=== PATIENT | female | born 1980 | race Caucasian/White ===

== ENCOUNTER 2017-01-06 13:28 | Emergency (ER) | payer MEDICAID, OTHER ==
[~2017-01-06] VITALS: Ht 170.2 cm; Wt 140.0 kg
[~2017-01-06 13:28] MED LIST: IBUP800T23 PO; OMEP20TA PO
[2017-01-06 13:39] VITALS: PULSE 106; RESP 20; TEMP 97.9; O2SAT 97
[2017-01-06 14:48] LABS: BLOOD, URINE SMALL (NEG); GLUCOSE,URINE NEG (NEG); KETONE, URINE NEG (NEG); METHOD OF COLLECTION CLEAN CATCH; NITRITE,URINE NEG (NEG); PH, URINE 5.5 (5.0-8.5)
[2017-01-06 14:49] LABS: URINE COLOR YELLOW (YELLW/STRAW)
[2017-01-06 14:52] LABS: COMMENT (UR) CULT NOT INDICATED; CULTURE IF INDICATED CULT NOT INDICATED; RBC, URINE 0-3 /hpf (0-3); SQUAMOUS EPITHELIAL CELL URINE 0-5 /hpf (0-5)
--- NOTE | 2017-01-06 14:57 | PD ---
HPI Chief Complaint: GI Complaint Time Seen by Provider: 14:42 Travel History International Travel<30 days: No Contact w/Intl Traveler<30days: No Traveled to known affect area: No History of Present Illness HPI 36 year-old woman presents to the emergency department with 4 days of nausea vomiting. She also has some right sided flank pain. She had both children at home that were sick successively with nausea vomiting fevers chills and diarrhea. She's had chills but no real fevers. No diarrhea. Symptoms started about 4 days ago renal better and that she was throwing up again today. Pain is been along the right flank. Also been very very fatigued. She otherwise had been feeling generally well and healthy. No other complaints. History Past Medical History Narrative Medical Gastritis/esophagitis LMP: 12/26/2016 : 4 Para: 2 Social History Alcohol Use: Yes (Rarely) Tobacco Use: Yes (1 PPD) Allergies-Medications (Allergen,Severity, Reaction): Coded Allergies: No Known Allergies (Verified , 01/06/17) Reported Meds & Prescriptions Reported Meds & Active Scripts Active Reported Omeprazole 20 Mg Tab 20 Mg PO DAILY Review of Systems Except as stated in HPI: all other systems reviewed are Neg Physical Exam Narrative GENERAL: Well-appearing 36 year-old woman, no acute distress. SKIN: Warm and dry. HEAD: Atraumatic. Normocephalic. EYES: Pupils equal and round. No scleral icterus. No injection or drainage. ENT: No nasal bleeding or discharge. Mucous membranes pink and moist. NECK: Trachea midline. No JVD. CARDIOVASCULAR: Regular rate and rhythm. No murmur appreciated. RESPIRATORY: No accessory muscle use. Clear to auscultation. Breath sounds equal bilaterally. GASTROINTESTINAL: Abdomen is obese, soft, there is no tenderness. There is no right upper quadrant tenderness. Negative Altamirano's. MUSCULOSKELETAL: No obvious deformities. No edema. NEUROLOGICAL: Awake and alert. No obvious cranial nerve deficits. Motor grossly within normal limits. Normal speech. PSYCHIATRIC: Appropriate mood and affect; insight and judgment normal. Data Data Last Documented VS Vital Signs Date Time Temp Pulse Resp B/P Pulse Ox O2 Delivery O2 Flow Rate FiO2 01/06/17 13:39 97.9 106 20 97 Orders Urinalysis - C+S If Indicated (01/06/17 14:39) Ed Urine Pregnancytest Poc (01/06/17 14:39) Complete Blood Count With Diff (01/06/17 14:51) Comprehensive Metabolic Panel (01/06/17 14:51) Lipase (01/06/17 14:51) Iv Access Insert/Monitor (01/06/17 14:51) Sodium Chlor 0.9% 1000 Ml Inj (Ns 1000 M (01/06/17 15:00) Ondansetron Inj (Zofran Inj) (01/06/17 15:00) Labs Laboratory Tests Test 01/06/17 01/06/17 14:30 15:10 Urine Collection Type CLEAN CATCH Urine Color YELLOW Urine Turbidity CLEAR Urine pH 5.5 Urine Specific [place] 1.015 Urine Protein NEG mg/dL Urine Glucose (UA) NEG mg/dL Urine Ketones NEG mg/dL Urine Occult Blood SMALL Urine Nitrite NEG Urine Bilirubin NEG Urine Leukocyte Esterase NEG Urine RBC 0-3 /hpf Urine WBC 3-5 /hpf Urine Squamous Epithelial 0-5 /hpf Cells Microscopic Urinalysis Comment CULT NOT INDICATED Sodium Level 139 MEQ/L Potassium Level 4.1 MEQ/L Chloride Level 105 MEQ/L Carbon Dioxide Level 27.5 MEQ/L Anion Gap 7 MEQ/L Blood Urea Nitrogen 10 MG/DL Creatinine 0.82 MG/DL Estimat Glomerular Filtration 79 ML/MIN Rate Random Glucose 87 MG/DL Calcium Level 8.3 MG/DL Total Bilirubin 0.7 MG/DL Aspartate Amino Transf 17 U/L (AST/SGOT) Alanine Aminotransferase 28 U/L (ALT/SGPT) Alkaline Phosphatase 93 U/L Total Protein 7.6 GM/DL Albumin 3.5 GM/DL Lipase 73 U/L [facility] Medical Decision Making Medical Screen Exam Complete: Yes Emergency Medical Condition: Yes Differential Diagnosis Gastroenteritis, gastritis, cholecystitis, pancreatitis, dehydration, other Narrative Course Medical decision-making 36-year-old with gastritis-type symptoms. 2 children both a gastroenteritis. She is not really had any diarrhea. She is a history of gastritis. She's no abdominal tenderness at all. This right sided pain seems to be musculoskeletal from vomiting. She has no right upper quadrant tenderness in the abdomen. She has had gallstones in the past. We'll check labs, IV fluid, antiemetics, likely discharge. Diagnosis Primary Impression: Nausea & vomiting Qualified Code: R11.2 - Nausea and vomiting, intractability of vomiting not specified, unspecified vomiting type Patient Instructions: General Instructions Additional Instructions: Use Zofran if needed for nausea or vomiting. Drink plenty of fluids to stay well-hydrated. Follow-up with her primary doctor in the next 2-4 days. Return to the emergency department for any worsening abdominal pain, vomiting, or any other new or worsening symptoms. Med/Other Pt SpecificInfo: Prescription(s) given Scripts Ondansetron Odt (Zofran Odt)4 Mg Tab4 Mg SL Q8HR PRN (Nausea/Vomiting) #15 TAB May substitute non-ODT form. Prov:Lam Bustamante MD 01/06/17 Disposition: 01 DISCHARGE HOME Condition: Stable Lam Bustamante MD Jan 06, 2017 14:57
[2017-01-06] MEDS ORDERED: SODIUM CHLOR 0.9% 1000 ML INJ 1,000 ML IV SCH (15:00)
[2017-01-06] MEDS ORDERED: ONDANSETRON HCL 4 MG/2 ML VIAL IV ONE (15:00)
[2017-01-06 15:15] VITALS: BP 147/87; PULSE 92; RESP 16; O2SAT 98
[2017-01-06 15:27] LABS: CHLORIDE 105 MEQ/L (98-107); POTASSIUM 4.1 MEQ/L (3.5-5.1); SODIUM (NA) 139 MEQ/L (136-145)
[2017-01-06 15:31] LABS: ANION GAP 7 MEQ/L (5-15); BICARBONATE 27.5 MEQ/L (21.0-32.0); BLOOD UREA NITROGEN 10 MG/DL (7-18)
[2017-01-06 15:33] LABS: ALT (GPT) 28 U/L (10-53); AST (GOT) 17 U/L (15-37)
[2017-01-06 15:34] LABS: GLOMERULAR FILTRATION RATE 79 ML/MIN (>89)
[2017-01-06 15:35] LABS: TOTAL BILIRUBIN ADULT 0.7 MG/DL (0.2-1.0)
[2017-01-06 15:36] LABS: ALKALINE PHOSPHATASE 93 U/L (45-117)
[2017-01-06] MEDS ORDERED: ZOFR4TAB3 SL (15:48)
[2017-01-06 15:51] LABS: AUTOMATED NEUTROPHIL # 5.6 TH/MM3 (1.8-7.7); BASOPHIL % 0.2 % (0.0-2.0); EOSINOPHIL # 0.3 TH/MM3 (0-0.4); EOSINOPHIL % 3.5 % (0.0-4.0); HEMATOCRIT 47.5 % (35.0-46.0); LYMPH % 23.9 % (9.0-44.0); MEAN CORPUSCULAR HEMOGLOBIN 28.6 PG (27.0-34.0); MEAN CORPUSCULAR HGB CONC 32.9 % (32.0-36.0); MONO % 7.4 % (0.0-8.0); PLATELET COUNT 277 TH/MM3 (150-450); RED BLOOD COUNT 5.46 MIL/MM3 (4.00-5.30); RED CELL DISTRIBUTION WIDTH 13.4 % (11.6-17.2); WHITE BLOOD COUNT 8.5 TH/MM3 (4.0-11.0)
[2017-01-06 15:52] LABS: HEMO FLAGS DIFF FINAL
[2017-01-06 16:15] VITALS: BP 138/78; PULSE 82; RESP 16; O2SAT 97
== END 2017-01-06 16:22 | disposition home or self-care (01) ==
LOC: PHED 13:28
DX: R11.2 Nausea with vomiting, unspecified (principal)
CPT/HCPCS: 80053; 81001; 83690; 84703; 85025; 96361; 96374; 99284; J2405; J7030

== ENCOUNTER 2017-04-16 04:13 | Emergency (ER) | payer MEDICAID ==
[~2017-04-16] VITALS: Ht 172.7 cm; Wt 142.2 kg
[~2017-04-16 04:13] MED LIST changes: -IBUP800T23 PO; +ZOFR4TAB3 SL
[2017-04-16 04:18] VITALS: BP 158/110; PULSE 108; RESP 16; TEMP 97.5; O2SAT 98
[2017-04-16] MEDS ORDERED: IBUP800T23 PO (04:29)
[2017-04-16] MEDS ORDERED: SODIUM CHLOR 0.9% 1000 ML INJ 1,000 ML IV SCH (04:42)
--- NOTE | 2017-04-16 04:42 | PD ---
HPI Chief Complaint: Abdominal Pain Time Seen by Provider: 04:30 Travel History International Travel<30 days: No Contact w/Intl Traveler<30days: No Traveled to known affect area: No History of Present Illness HPI The patient is a 36-year-old female that complains of right upper quadrant pain for approximately 24 hours. She states she may have had in the last few months some fatty food intolerance. The patient is known to have gallstones, this was shown on a CAT scan in August of last year. She has never had a gallbladder ultrasound. She denies any fever. She has had nausea and vomiting tonight. PFSH Past Medical History Hx Anticoagulant Therapy: No Cancer: No Diabetes: No Diminished Hearing: No GERD: Yes (GASTRITIS/ESOPHAGITIS) Genitourinary: Yes (PT HAS PROCEDURE TO ENLARGE BLADDER) Headaches: Yes Kidney Stones: Yes Musculoskeletal: Yes (OLD LEFT KNEE INJURY) Psychiatric: No Immunizations Current: Yes Migraines: Yes Influenza Vaccination: No ?: Not LMP: 04/02/17 : 4 Para: 2 Miscarriage: 1 : 1 Past Surgical History Genitourinary Surgery: Yes (BLADDER ENLARGEMENT) Social History Alcohol Use: Yes (Rarely) Tobacco Use: Yes (1 PPD) Substance Use: No Allergies-Medications (Allergen,Severity, Reaction): Coded Allergies: No Known Allergies (Verified , 04/16/17) Reported Meds & Prescriptions Reported Meds & Active Scripts Active Zofran Odt (Ondansetron Odt) 4 Mg Tab 4 Mg SL Q8HR PRN May substitute non-ODT form. Reported Ibuprofen 800 Mg Tab 800 Mg PO Q8H PRN Omeprazole 20 Mg Tab 20 Mg PO DAILY Review of Systems Except as stated in HPI: all other systems reviewed are Neg Physical Exam Narrative GENERAL: The patient is obese, alert, oriented 3 in moderate apparent distress with her right upper quadrant pain. The vital signs show temperature 97.5 with pulse rate of 10 weight and blood pressure 158/110 but are otherwise normal. SKIN: Focused skin assessment warm/dry. HEAD: Atraumatic. Normocephalic. EYES: Pupils equal and round. No scleral icterus. No injection or drainage. ENT: No nasal bleeding or discharge. Mucous membranes pink and moist. NECK: Trachea midline. No JVD. CARDIOVASCULAR: Regular rate and rhythm. No murmur appreciated. RESPIRATORY: No accessory muscle use. Clear to auscultation. Breath sounds equal bilaterally. GASTROINTESTINAL: Abdomen soft, non-tender, nondistended. Hepatic and splenic margins not palpable. There is tenderness in the right upper quadrant to direct palpation. Altamirano's sign is negative. MUSCULOSKELETAL: No obvious deformities. No clubbing. No cyanosis. No edema. NEUROLOGICAL: Awake and alert. No obvious cranial nerve deficits. Motor grossly within normal limits. Normal speech. PSYCHIATRIC: Appropriate mood and affect; insight and judgment normal. Data Data Last Documented VS Vital Signs Date Time Temp Pulse Resp B/P Pulse Ox O2 Delivery O2 Flow Rate FiO2 04/16/17 06:04 81 16 114/73 97 Room Air 04/16/17 04:18 97.5 Orders Beta Hcg (Quant/Titer) (04/16/17 04:42) Complete Blood Count With Diff (04/16/17 04:42) Comprehensive Metabolic Panel (04/16/17 04:42) Lipase (04/16/17 04:42) Urinalysis - C+S If Indicated (04/16/17 04:42) Us Abdomen Gallbladder (04/16/17 ) Iv Access Insert/Monitor (04/16/17 04:42) Ecg Monitoring (04/16/17 04:42) Oximetry (04/16/17 04:42) Ondansetron Inj (Zofran Inj) (04/16/17 04:45) Sodium Chlor 0.9% 1000 Ml Inj (Ns 1000 M (04/16/17 04:42) Sodium Chloride 0.9% Flush (Ns Flush) (04/16/17 04:45) Hydromorphone Pf Inj (Dilaudid Pf Inj) (04/16/17 04:45) Labs Laboratory Tests Test 04/16/17 04/16/17 04:40 05:15 White Blood Count 8.6 TH/MM3 Red Blood Count 4.92 MIL/MM3 Hemoglobin 14.2 GM/DL Hematocrit 42.3 % Mean Corpuscular Volume 86.0 FL Mean Corpuscular Hemoglobin 28.8 PG Mean Corpuscular Hemoglobin 33.5 % Concent Red Cell Distribution Width 12.9 % Platelet Count 246 TH/MM3 Mean Platelet Volume 9.6 FL Neutrophils (%) (Auto) 66.6 % Lymphocytes (%) (Auto) 21.5 % Monocytes (%) (Auto) 6.4 % Eosinophils (%) (Auto) 2.4 % Basophils (%) (Auto) 3.1 % Neutrophils # (Auto) 5.6 TH/MM3 Lymphocytes # (Auto) 1.9 TH/MM3 Monocytes # (Auto) 0.6 TH/MM3 Eosinophils # (Auto) 0.2 TH/MM3 Basophils # (Auto) 0.3 TH/MM3 CBC Comment DIFF FINAL Differential Comment Sodium Level 141 MEQ/L Potassium Level 3.6 MEQ/L Chloride Level 106 MEQ/L Carbon Dioxide Level 26.8 MEQ/L Anion Gap 8 MEQ/L Blood Urea Nitrogen 13 MG/DL Creatinine 0.83 MG/DL Estimat Glomerular Filtration 78 ML/MIN Rate Random Glucose 116 MG/DL Calcium Level 8.2 MG/DL Total Bilirubin 0.5 MG/DL Aspartate Amino Transf 218 U/L (AST/SGOT) Alanine Aminotransferase 121 U/L (ALT/SGPT) Alkaline Phosphatase 112 U/L Total Protein 6.7 GM/DL Albumin 3.2 GM/DL Lipase 105 U/L Human Chorionic Gonadotropin, LESS THAN 1 Quant MIU/ML Urine Color KRYSTYNA Urine Turbidity SLIGHT Urine pH 7.0 Urine Specific [place] 1.030 Urine Protein TRACE mg/dL Urine Glucose (UA) NEG mg/dL Urine Ketones TRACE mg/dL Urine Occult Blood TRACE Urine Nitrite NEG Urine Bilirubin NEG Urine Leukocyte Esterase SMALL Urine RBC 0-3 /hpf Urine WBC 3-5 /hpf Urine Squamous Epithelial > 8 /hpf Cells Urine Amorphous Sediment FEW Urine Bacteria OCC /hpf Microscopic Urinalysis Comment CULT NOT INDICATED MDM Medical Decision Making Medical Screen Exam Complete: Yes Emergency Medical Condition: Yes Medical Record Reviewed: Yes Interpretation(s) The CBC is normal. The complete metabolic profile shows a GFR of 78, calcium 8.2, AST of 218, ALT of 121 and albumen of 3.2 but is otherwise unremarkable. The lipase is normal. The beta-hCG is less than 1. The urine shows krystyna color , trace ketones, trace occult blood, small leukocyte Estrace with 3-5 white cells but is otherwise normal and culture is not indicated. Differential Diagnosis Cholelithiasis with colic, cholecystitis, pyelonephritis, ulcer pain, colitis Narrative Course It is now 0652 and the patient is transferred to Dr. Hogan. Zaid Lee MD Apr 16, 2017 04:42 Zaid Lee MD Apr 16, 2017 04:42
[2017-04-16] MEDS ORDERED: ONDANSETRON HCL 4 MG/2 ML VIAL IVP ONE (04:45)
[2017-04-16] MEDS ORDERED: SODIUM CHLORIDE 0.9% FLUSH 10 ML FLUSH IV FLUSH PRN (04:45)
[2017-04-16] MEDS ORDERED: HYDROmorphone HCL PF 1 MG/ML VIAL IVS ONE (04:45)
[2017-04-16 04:50] LABS: AUTOMATED NEUTROPHIL # 5.6 TH/MM3 (1.8-7.7); BASOPHIL # 0.3 TH/MM3 (0-0.2); BASOPHIL % 3.1 % (0.0-2.0); EOSINOPHIL # 0.2 TH/MM3 (0-0.4); EOSINOPHIL % 2.4 % (0.0-4.0); HEMATOCRIT 42.3 % (35.0-46.0); HEMO FLAGS DIFF FINAL; LYMPH % 21.5 % (9.0-44.0); LYMPHOCYTE # 1.9 TH/MM3 (1.0-4.8); MEAN CORPUSCULAR HEMOGLOBIN 28.8 PG (27.0-34.0); MEAN CORPUSCULAR HGB CONC 33.5 % (32.0-36.0); MONO % 6.4 % (0.0-8.0); NEUT % 66.6 % (16.0-70.0); PLATELET COUNT 246 TH/MM3 (150-450); RED BLOOD COUNT 4.92 MIL/MM3 (4.00-5.30); RED CELL DISTRIBUTION WIDTH 12.9 % (11.6-17.2); WHITE BLOOD COUNT 8.6 TH/MM3 (4.0-11.0)
[2017-04-16 04:55] VITALS: PULSE 94; RESP 18; O2SAT 98
[2017-04-16 04:58] LABS: CHLORIDE 106 MEQ/L (98-107); POTASSIUM 3.6 MEQ/L (3.5-5.1); SODIUM (NA) 141 MEQ/L (136-145)
[2017-04-16 05:02] LABS: ANION GAP 8 MEQ/L (5-15); BICARBONATE 26.8 MEQ/L (21.0-32.0); BLOOD UREA NITROGEN 13 MG/DL (7-18)
[2017-04-16 05:05] LABS: ALT (GPT) 121 U/L (10-53); AST (GOT) 218 U/L (15-37); GLOMERULAR FILTRATION RATE 78 ML/MIN (>89)
[2017-04-16 05:06] LABS: TOTAL BILIRUBIN ADULT 0.5 MG/DL (0.2-1.0)
[2017-04-16 05:08] LABS: ALKALINE PHOSPHATASE 112 U/L (45-117)
[2017-04-16 05:10] LABS: BETA HCG QUANT LESS THAN 1 MIU/ML (0-5)
[2017-04-16 05:23] LABS: BLOOD, URINE TRACE (NEG); GLUCOSE,URINE NEG (NEG); KETONE, URINE TRACE mg/dL (NEG); NITRITE,URINE NEG (NEG)
[2017-04-16 05:32] LABS: URINE COLOR AMBER (YELLW/STRAW)
[2017-04-16 05:33] LABS: BACTERIA, URINE OCC /hpf; COMMENT (UR) CULT NOT INDICATED; CULTURE IF INDICATED CULT NOT INDICATED; RBC, URINE 0-3 /hpf (0-3); SQUAMOUS EPITHELIAL CELL URINE > 8 /hpf (0-5)
[2017-04-16 06:04] VITALS: BP 114/73; PULSE 81; RESP 16; O2SAT 97
--- NOTE | 2017-04-16 06:56 | RADRPT ---
EXAM DATE/TIME: 04/16/2017 06:16 [facility] COMPARISON: No previous studies available for comparison. INDICATIONS : RUQ pain. MEDICAL HISTORY : Gastroesophageal reflux disease. Kidney stones. Headaches. Migraines. SURGICAL HISTORY : Bladder enlargement. ENCOUNTER: Initial ACUITY: 2 months PAIN SCORE: 8/10 LOCATION: Right upper quadrant MEASUREMENTS: 15.5 cm length COMMON DUCT: 3 mm RIGHT KIDNEY: 12.1 x 6.9 x 6.7 cm FINDINGS: LIVER: Diffuse echogenic without focal lesion or ductal dilatation. COMMON DUCT: No intraluminal mass or stone visualized. GALLBLADDER: Contains a non-mobile stone in the gallbladder neck, demonstrates no wall thickening or pericholecyst ic fluid. PANCREAS: The visualized portions are within normal limits. RIGHT KIDNEY: No evidence of hydronephrosis, stone, or mass. CONCLUSION: 1. Stone in the gallbladder neck without wall thickening or pericholecystic fluid. 2. Echogenic liver likely hepatic steatosis Kun Catherine MD on April 16, 2017 at 6:53 Board Certified Radiologist. This report was verified electronically.
[2017-04-16 07:05] VITALS: RESP 16; O2SAT 99
[2017-04-16 07:09] VITALS: BP 122/77; PULSE 79; RESP 16; O2SAT 98
[2017-04-16] MEDS ORDERED: CODE30TA2 PO (07:40)
[2017-04-16] MEDS ORDERED: ZOFR4TAB3 SL (07:40)
--- NOTE | 2017-04-16 07:44 | PD ---
Physical Exam Date Seen by Provider: Apr 16, 2017 Narrative GENERAL: SKIN: Warm and dry. HEAD: Atraumatic. Normocephalic. EYES: Pupils equal and round. No scleral icterus. No injection or drainage. ENT: No nasal bleeding or discharge. Mucous membranes pink and moist. NECK: Trachea midline. No JVD. CARDIOVASCULAR: Regular rate and rhythm. RESPIRATORY: No accessory muscle use. Clear to auscultation. Breath sounds equal bilaterally. GASTROINTESTINAL: Abdomen soft, non-tender, nondistended. Hepatic and splenic margins not palpable. MUSCULOSKELETAL: Extremities without clubbing, cyanosis, or edema. No obvious deformities. NEUROLOGICAL: Awake and alert. No obvious cranial nerve deficits. Motor grossly within normal limits. Five out of 5 muscle strength in the arms and legs. Normal speech. PSYCHIATRIC: Appropriate mood and affect; insight and judgment normal. Data Data Last Documented VS Vital Signs Date Time Temp Pulse Resp B/P Pulse Ox O2 Delivery O2 Flow Rate FiO2 04/16/17 07:09 79 16 122/77 98 Room Air 04/16/17 04:18 97.5 Orders Beta Hcg (Quant/Titer) (04/16/17 04:42) Complete Blood Count With Diff (04/16/17 04:42) Comprehensive Metabolic Panel (04/16/17 04:42) Lipase (04/16/17 04:42) Urinalysis - C+S If Indicated (04/16/17 04:42) Us Abdomen Gallbladder (04/16/17 ) Iv Access Insert/Monitor (04/16/17 04:42) Ecg Monitoring (04/16/17 04:42) Oximetry (04/16/17 04:42) Ondansetron Inj (Zofran Inj) (04/16/17 04:45) Sodium Chlor 0.9% 1000 Ml Inj (Ns 1000 M (04/16/17 04:42) Sodium Chloride 0.9% Flush (Ns Flush) (04/16/17 04:45) Hydromorphone Pf Inj (Dilaudid Pf Inj) (04/16/17 04:45) Labs Laboratory Tests Test 04/16/17 04/16/17 04:40 05:15 White Blood Count 8.6 TH/MM3 Red Blood Count 4.92 MIL/MM3 Hemoglobin 14.2 GM/DL Hematocrit 42.3 % Mean Corpuscular Volume 86.0 FL Mean Corpuscular Hemoglobin 28.8 PG Mean Corpuscular Hemoglobin 33.5 % Concent Red Cell Distribution Width 12.9 % Platelet Count 246 TH/MM3 Mean Platelet Volume 9.6 FL Neutrophils (%) (Auto) 66.6 % Lymphocytes (%) (Auto) 21.5 % Monocytes (%) (Auto) 6.4 % Eosinophils (%) (Auto) 2.4 % Basophils (%) (Auto) 3.1 % Neutrophils # (Auto) 5.6 TH/MM3 Lymphocytes # (Auto) 1.9 TH/MM3 Monocytes # (Auto) 0.6 TH/MM3 Eosinophils # (Auto) 0.2 TH/MM3 Basophils # (Auto) 0.3 TH/MM3 CBC Comment DIFF FINAL Differential Comment Sodium Level 141 MEQ/L Potassium Level 3.6 MEQ/L Chloride Level 106 MEQ/L Carbon Dioxide Level 26.8 MEQ/L Anion Gap 8 MEQ/L Blood Urea Nitrogen 13 MG/DL Creatinine 0.83 MG/DL Estimat Glomerular Filtration 78 ML/MIN Rate Random Glucose 116 MG/DL Calcium Level 8.2 MG/DL Total Bilirubin 0.5 MG/DL Aspartate Amino Transf 218 U/L (AST/SGOT) Alanine Aminotransferase 121 U/L (ALT/SGPT) Alkaline Phosphatase 112 U/L Total Protein 6.7 GM/DL Albumin 3.2 GM/DL Lipase 105 U/L Human Chorionic Gonadotropin, LESS THAN 1 Quant MIU/ML Urine Color KRIS Urine Turbidity SLIGHT Urine pH 7.0 Urine Specific [place] 1.030 Urine Protein TRACE mg/dL Urine Glucose (UA) NEG mg/dL Urine Ketones TRACE mg/dL Urine Occult Blood TRACE Urine Nitrite NEG Urine Bilirubin NEG Urine Leukocyte Esterase SMALL Urine RBC 0-3 /hpf Urine WBC 3-5 /hpf Urine Squamous Epithelial > 8 /hpf Cells Urine Amorphous Sediment FEW Urine Bacteria OCC /hpf Microscopic Urinalysis Comment CULT NOT INDICATED MDM Medical Record Reviewed: Yes Supervised Visit with HEIDI: No Differential Diagnosis GALLSTONES V CHOLECYSTITIS V CHOLEDOCHOLITHIASIS Narrative Course PATIENT SIGNED OUT PENDING ULTRASOUND....ON REEVALUATION PATIENT IS NOW COMFORTABLE, NONICTERIC AND NOT VOMITING....MILDLY ELEV LFT'S BUT WITH NORMAL BILIRUBIN, ALSO ULTRASOUND DID NOT SHOW ANY GALL BLADDER WALL THICKENING, NO PERICHOL FLUID, GALLSTONES NOTED AT GB NECK BUT NOT ON CBD, ALSO NO CBD DILATION EITHER.....BASED ON THE INFO REVIEWED PT DOES NOT APPEAR TO HAVE OBSTRUCTIVE PATTERN OF LFT'S THEREFORE NO IMMEDIATE CONCERN FOR CHOLEDOCHOLITHIASIS...WILL D/C AND ADVISE F/U WITH GI Diagnosis Primary Impression: CHOLELITHIASIS Referrals: Jo Ann Patrick MD Scripts Ondansetron Odt (Zofran Odt)4 Mg Tab4 Mg SL Q6HR PRN (Nausea/Vomiting) #12 TAB Prov:Catrachito Hogan MD 04/16/17 Codeine-Acetaminophen 30-300 mg Tab1 Tab PO Q4H PRN (PAIN) #20 TAB Prov:Catrachito Hogan MD 04/16/17 Disposition: 01 DISCHARGE HOME Condition: Stable Catrachito Hogan MD Apr 16, 2017 07:44
[2017-04-16 07:56] VITALS: BP 109/68
== END 2017-04-16 07:59 | disposition home or self-care (01) ==
LOC: PHED 04:13
DX: K80.20 Calculus of gallbladder without cholecystitis without obstruction (principal); F17.210 Nicotine dependence, cigarettes, uncomplicated
CPT/HCPCS: 76705; 80053; 81001; 83690; 84702; 85025; 96361; 96374; 96375; 99285; J1170; J2405; J7030

== ENCOUNTER 2017-04-19 17:22 | Emergency (ER) | payer MEDICAID ==
[~2017-04-19] VITALS: Ht 170.2 cm; Wt 142.5 kg
[~2017-04-19 17:22] MED LIST changes: +CODE30TA2 PO; +IBUP800T23 PO
[2017-04-19 17:28] VITALS: BP 147/75; PULSE 111; RESP 17; TEMP 98.2; O2SAT 97
[2017-04-19] MEDS ORDERED: SODIUM CHLOR 0.9% 1000 ML INJ 1,000 ML IV SCH (17:52)
[2017-04-19] MEDS ORDERED: SODIUM CHLORIDE 0.9% FLUSH 10 ML FLUSH IV FLUSH PRN (18:00)
[2017-04-19] MEDS ORDERED: MORPHINE SULFATE 8 MG/ML INJ IV PUSH ONE (18:00)
[2017-04-19] MEDS ORDERED: ONDANSETRON HCL 4 MG/2 ML VIAL IVP ONE (18:00)
--- NOTE | 2017-04-19 18:09 | PD ---
HPI Chief Complaint: Abdominal Pain Time Seen by Provider: 17:31 Travel History International Travel<30 days: No Contact w/Intl Traveler<30days: No Traveled to known affect area: No History of Present Illness HPI 36 yo F c/o constipation with bloody stool for 2 days. She was seen here and diagnosed with cholelithiasis 3 days prior. She went home with T3. Bowel movements were very painful over the past 2 days lasting 90 minutes on one occasion. Blood is noted to streak along the sides of the her stool. No similar prior event has occurred. Pt complains of RUQ pain, constant in nature today, which has caused insomnia over last few days. She can find no position of comfort. Nausea and vomiting is reported. She denies fever. Pain is worse after eating. PFSH Past Medical History Hx Anticoagulant Therapy: No Cancer: No Diabetes: No Diminished Hearing: No Gastrointestinal Disorders: Yes (GALLSTONES) GERD: Yes (GASTRITIS/ESOPHAGITIS) Genitourinary: Yes (PT HAS PROCEDURE TO ENLARGE BLADDER) Headaches: Yes Kidney Stones: Yes Musculoskeletal: Yes (OLD LEFT KNEE INJURY) Psychiatric: No Immunizations Current: Yes Migraines: Yes ?: Not LMP: 03/31/2017 : 4 Para: 2 Miscarriage: 1 : 1 Past Surgical History Genitourinary Surgery: Yes (BLADDER ENLARGEMENT) Social History Alcohol Use: Yes (Rarely) Tobacco Use: Yes (1 PPD) Substance Use: No Allergies-Medications (Allergen,Severity, Reaction): Coded Allergies: No Known Allergies (Verified , 04/19/17) Reported Meds & Prescriptions Reported Meds & Active Scripts Active Lortab (Hydrocodone-Acetaminophen) 5-325 Mg Tab 1-2 Tab PO Q6H PRN Polyethylene Glycol 3350 Powder (Polyethylene Glycol) 17 Gm Pow 17 Gm PO ONCE Codeine-Acetaminophen 30-300 mg Tab 1 Tab PO Q4H PRN Zofran Odt (Ondansetron Odt) 4 Mg Tab 4 Mg SL Q8HR PRN May substitute non-ODT form. Reported Omeprazole 20 Mg Tab 20 Mg PO DAILY Review of Systems Except as stated in HPI: all other systems reviewed are Neg Physical Exam Narrative GENERAL: 36 yo F, pleasant, WNWD, BMI 49 SKIN: Warm and dry. HEAD: Atraumatic. Normocephalic. EYES: Pupils equal and round. No scleral icterus. No injection or drainage. ENT: No nasal bleeding or discharge. Mucous membranes pink and moist. NECK: Trachea midline. No JVD. CARDIOVASCULAR: Regular rate and rhythm. RESPIRATORY: No accessory muscle use. Clear to auscultation. Breath sounds equal bilaterally. GASTROINTESTINAL: Soft. TTP RUQ. MUSCULOSKELETAL: Extremities without clubbing, cyanosis, or edema. No obvious deformities. NEUROLOGICAL: Awake and alert. No obvious cranial nerve deficits. Motor grossly within normal limits. Five out of 5 muscle strength in the arms and legs. Normal speech. PSYCHIATRIC: Appropriate mood and affect; insight and judgment normal. Data Data Last Documented VS Vital Signs Date Time Temp Pulse Resp B/P Pulse Ox O2 Delivery O2 Flow Rate FiO2 04/19/17 19:14 95 18 178/91 97 04/19/17 17:28 98.2 Orders Complete Blood Count With Diff (04/19/17 17:52) Comprehensive Metabolic Panel (04/19/17 17:52) Lipase (04/19/17 17:52) Us Abdomen Gallbladder (04/19/17 ) Iv Access Insert/Monitor (04/19/17 17:52) Ecg Monitoring (04/19/17 17:52) Oximetry (04/19/17 17:52) Ondansetron Inj (Zofran Inj) (04/19/17 18:00) Sodium Chlor 0.9% 1000 Ml Inj (Ns 1000 M (04/19/17 17:52) Sodium Chloride 0.9% Flush (Ns Flush) (04/19/17 18:00) Morphine Inj (Morphine Inj) (04/19/17 18:00) Ed Urine Pregnancytest Poc (04/19/17 17:52) Labs Laboratory Tests Test 04/19/17 18:05 White Blood Count 12.0 TH/MM3 Red Blood Count 5.29 MIL/MM3 Hemoglobin 15.3 GM/DL Hematocrit 45.3 % Mean Corpuscular Volume 85.6 FL Mean Corpuscular Hemoglobin 28.8 PG Mean Corpuscular Hemoglobin 33.7 % Concent Red Cell Distribution Width 13.4 % Platelet Count 268 TH/MM3 Mean Platelet Volume 9.2 FL Neutrophils (%) (Auto) 63.7 % Lymphocytes (%) (Auto) 27.3 % Monocytes (%) (Auto) 4.7 % Eosinophils (%) (Auto) 3.6 % Basophils (%) (Auto) 0.7 % Neutrophils # (Auto) 7.6 TH/MM3 Lymphocytes # (Auto) 3.3 TH/MM3 Monocytes # (Auto) 0.6 TH/MM3 Eosinophils # (Auto) 0.4 TH/MM3 Basophils # (Auto) 0.1 TH/MM3 CBC Comment DIFF FINAL Differential Comment Sodium Level 140 MEQ/L Potassium Level 3.8 MEQ/L Chloride Level 107 MEQ/L Carbon Dioxide Level 25.4 MEQ/L Anion Gap 8 MEQ/L Blood Urea Nitrogen 12 MG/DL Creatinine 0.79 MG/DL Estimat Glomerular Filtration 83 ML/MIN Rate Random Glucose 108 MG/DL Calcium Level 8.4 MG/DL Total Bilirubin 0.3 MG/DL Aspartate Amino Transf 16 U/L (AST/SGOT) Alanine Aminotransferase 39 U/L (ALT/SGPT) Alkaline Phosphatase 99 U/L Total Protein 7.3 GM/DL Albumin 3.4 GM/DL Lipase 95 U/L MDM Medical Decision Making Medical Screen Exam Complete: Yes Emergency Medical Condition: Yes Medical Record Reviewed: Yes Differential Diagnosis Constipation, Gastritis, Acute Cholecystitis, Biliary Colic, Pancreatitis, HORN , Hepatitis, Bowel Obstruction, Cystitis, Mesenteric Ischemia, AAA, Appendicitis , Renal Stone/Hydronephrosis, GERD, perforated viscous Narrative Course CBC & BMP Diagram 04/19/17 18:05 LFTs normal Lipase normal Last 24 hours Impressions Gall Bladder Ultrasound 04/19/17 0000 Signed Impressions: Service Date/Time: Wednesday, April 19, 2017 19:01 - CONCLUSION: 1. Large gallstone. 2. Hepatic steatosis. Herson White MD The patient is resting comfortably and feels better, is alert and in no distress. The patients results and examination findings were discussed. The repeat examination is unremarkable and benign. The history, exam, diagnostic testing, and current condition do not suggest any significant pathology to warrant further testing, continued ED treatment, admission, or surgical evaluation at this point. The vital signs have been stable. The patient does not have uncontrollable pain, intractable vomiting, or other significant symptoms. The patient's condition is stable and appropriate for discharge. The patient will pursue further outpatient evaluation with a primary care physician or other designated or consulting physician as indicated in the discharge instructions. The patient expressed understanding and was agreeable with this plan. Diagnosis Primary Impression: Nausea & vomiting Qualified Code: R11.2 - Nausea and vomiting, intractability of vomiting not specified, unspecified vomiting type Additional Impressions: Tobacco abuse Abdominal pain Qualified Code: R10.84 - Generalized abdominal pain Constipation due to opioid therapy Rectal bleed Referrals: Anand Khan MD 2 days Additional Instructions: You have a choice when it comes to health care, and we are glad that you chose [facility]. Hopefully, we have met your expectations on today's visit. You are welcome to return to [facility] at any time, as we are committed to meeting the health care needs of our community. Med/Other Pt SpecificInfo: Prescription(s) given Scripts Hydrocodone-Acetaminophen (Lortab)5-325 Mg Tab1-2 Tab PO Q6H PRN (PAIN SCALE 6 TO 10) #20 TAB Ref 0 Prov:Paolo Spears MD 04/19/17 Polyethylene Glycol 3350 Powder 17 Gm Pow17 Gm PO ONCE #1 BOTTLE Ref 0 Prov:Paolo Spears MD 04/19/17 Disposition: 01 DISCHARGE HOME Condition: Stable Paolo Spears MD Apr 19, 2017 18:09
[2017-04-19 18:12] LABS: AUTOMATED NEUTROPHIL # 7.6 TH/MM3 (1.8-7.7); BASOPHIL # 0.1 TH/MM3 (0-0.2); BASOPHIL % 0.7 % (0.0-2.0); EOSINOPHIL # 0.4 TH/MM3 (0-0.4); EOSINOPHIL % 3.6 % (0.0-4.0); HEMATOCRIT 45.3 % (35.0-46.0); HEMO FLAGS DIFF FINAL; LYMPH % 27.3 % (9.0-44.0); LYMPHOCYTE # 3.3 TH/MM3 (1.0-4.8); MEAN CELL VOLUME 85.6 FL (80.0-100.0); MEAN CORPUSCULAR HEMOGLOBIN 28.8 PG (27.0-34.0); MEAN CORPUSCULAR HGB CONC 33.7 % (32.0-36.0); MONO % 4.7 % (0.0-8.0); NEUT % 63.7 % (16.0-70.0); PLATELET COUNT 268 TH/MM3 (150-450); RED BLOOD COUNT 5.29 MIL/MM3 (4.00-5.30); RED CELL DISTRIBUTION WIDTH 13.4 % (11.6-17.2)
[2017-04-19 18:15] VITALS: O2SAT 94
[2017-04-19 18:16] VITALS: BP 134/74; PULSE 106; RESP 20; O2SAT 95
[2017-04-19 18:32] LABS: CHLORIDE 107 MEQ/L (98-107); POTASSIUM 3.8 MEQ/L (3.5-5.1); SODIUM (NA) 140 MEQ/L (136-145)
[2017-04-19 18:36] LABS: ANION GAP 8 MEQ/L (5-15); BICARBONATE 25.4 MEQ/L (21.0-32.0); BLOOD UREA NITROGEN 12 MG/DL (7-18)
[2017-04-19 18:39] LABS: ALT (GPT) 39 U/L (10-53); AST (GOT) 16 U/L (15-37); GLOMERULAR FILTRATION RATE 83 ML/MIN (>89)
[2017-04-19 18:40] LABS: TOTAL BILIRUBIN ADULT 0.3 MG/DL (0.2-1.0)
[2017-04-19 18:42] LABS: ALKALINE PHOSPHATASE 99 U/L (45-117)
[2017-04-19] MEDS ORDERED: POLY17S PO (18:49)
[2017-04-19 19:14] VITALS: BP 178/91; PULSE 95; RESP 18; O2SAT 97
--- NOTE | 2017-04-19 19:43 | RADRPT ---
EXAM DATE/TIME: 04/19/2017 19:01 [facility] COMPARISON: CT ABDOMEN & PELVIS W CONTRAST, August 26, 2016, 18:18. US ABDOMEN - GALLBLADDER, April 16, 2017, 6 :16. INDICATIONS : RUQ pain. MEDICAL HISTORY : Gastroesophageal reflux disease. Kidney stones. Headaches. Migraines. SURGICAL HISTORY : Bladder enlargement surgery. ENCOUNTER: Subsequent ACUITY: 2 months PAIN SCORE: 5/10 LOCATION: Right upper quadrant MEASUREMENTS: LIVER: 19.8 cm length COMMON DUCT: 4 mm RIGHT KIDNEY: 13.0 x 6.2 x 5.3 cm FINDINGS: LIVER: The liver is diffusely echogenic without focal lesion or ductal dilatation. COMMON DUCT: No intraluminal mass or stone visualized. GALLBLADDER: There is a 3.6 cm all stones seen. The gallbladder wall is not thickened. PANCREAS: The visualized portions are within normal limits. RIGHT KIDNEY: No evidence of hydronephrosis, stone, or mass. CONCLUSION: 1. Large gallstone. 2. Hepatic steatosis. Herson White MD on April 19, 2017 at 19:39 Board Certified Radiologist. This report was verified electronically.
[2017-04-19] MEDS ORDERED: HYDR-3533 PO (19:53)
== END 2017-04-19 20:18 | disposition home or self-care (01) ==
LOC: PHED 17:22
DX: R11.2 Nausea with vomiting, unspecified (principal); R10.84 Generalized abdominal pain; K59.03 Drug induced constipation; T40.2X5A Adverse effect of other opioids, initial encounter; K62.5 Hemorrhage of anus and rectum; F17.210 Nicotine dependence, cigarettes, uncomplicated; K80.20 Calculus of gallbladder without cholecystitis without obstruction; K76.0 Fatty (change of) liver, not elsewhere classified
CPT/HCPCS: 76705; 80053; 83690; 84703; 85025; 96361; 96374; 96375; 99285; J2270; J2405; J7030

== ENCOUNTER 2017-06-11 23:04 | Emergency (ER) | payer MEDICAID ==
[~2017-06-11] VITALS: Ht 170.2 cm; Wt 143.0 kg
[~2017-06-11 23:04] MED LIST changes: +HYDR-3533 PO; -IBUP800T23 PO; +POLY17S PO
[2017-06-11 23:11] VITALS: BP 170/101; PULSE 96; RESP 18; TEMP 98.3; O2SAT 97
[2017-06-11] MEDS ORDERED: SODIUM CHLOR 0.9% 1000 ML INJ 1,000 ML IV SCH (23:21)
--- NOTE | 2017-06-11 23:21 | PD ---
HPI Chief Complaint: Abdominal Pain Time Seen by Provider: 23:21 Travel History International Travel<30 days: No Contact w/Intl Traveler<30days: No Traveled to known affect area: No History of Present Illness HPI 36 year-old female presents to the emergency department for complaint of right upper quadrant and epigastric pain since this 5 PM. Patient has history of gallstones. Patient also has history of recurrent symptomatic gastritis and esophagitis. Patient reports one episode of vomiting stomach contents without bilious emesis coffee-ground emesis or hematemesis. No constipation or diarrhea and no report of melena or hematochezia. No urinary symptoms. Patient states pain is epigastric and this is new for her. Patient denies history of peptic ulcer disease or pancreatitis. Patient does smoke cigarettes and is morbidly obese with family history of CAD but denies personal history of CAD, hypertension, dyslipidemia, or diabetes. Patient takes no medications except omeprazole on a daily basis. Patient has had upper endoscopy in the past. No other surgeries. Patient rates pain as moderate to severe. Patient did take Aleve at 5 PM as well as 10 PM PFSH Past Medical History Narrative Medical Esophagitis gastritis endoscopy gallstones tobacco use; nursing notes reviewed Hx Anticoagulant Therapy: No Cancer: No Diabetes: No Diminished Hearing: No Gastrointestinal Disorders: Yes (GALLSTONES) GERD: Yes (GASTRITIS/ESOPHAGITIS) Genitourinary: Yes (PT HAS PROCEDURE TO ENLARGE BLADDER) Headaches: Yes Kidney Stones: Yes Musculoskeletal: Yes (OLD LEFT KNEE INJURY) Psychiatric: No Immunizations Current: Yes Migraines: Yes : 4 Para: 2 Miscarriage: 1 : 1 Past Surgical History Genitourinary Surgery: Yes (BLADDER ENLARGEMENT) Social History Alcohol Use: Yes (Rarely) Tobacco Use: Yes (1 PPD) Substance Use: No Allergies-Medications (Allergen,Severity, Reaction): Coded Allergies: No Known Allergies (Verified , 04/19/17) Reported Meds & Prescriptions Reported Meds & Active Scripts Active Zofran Odt (Ondansetron Odt) 4 Mg Tab 4 Mg SL Q6HR PRN Lortab (Hydrocodone-Acetaminophen) 5-325 Mg Tab 1-2 Tab PO Q6H PRN Polyethylene Glycol 3350 Powder (Polyethylene Glycol) 17 Gm Pow 17 Gm PO ONCE Codeine-Acetaminophen 30-300 mg Tab 1 Tab PO Q4H PRN Zofran Odt (Ondansetron Odt) 4 Mg Tab 4 Mg SL Q8HR PRN May substitute non-ODT form. Reported Omeprazole 20 Mg Tab 20 Mg PO DAILY Review of Systems Except as stated in HPI: all other systems reviewed are Neg General / Constitutional: No: Fever, Chills HENT: No: Congestion Cardiovascular: No: Chest Pain or Discomfort Respiratory: No: Shortness of Breath Gastrointestinal: Positive: Nausea, Vomiting (x1), Abdominal Pain (ruq) Genitourinary: No: Dysuria, Flank Pain Musculoskeletal: No: Myalgias, Arthralgias Skin: No Rash Neurologic: No: Weakness Psychiatric: No: Anxiety Hematologic/Lymphatic: No: Easy Bruising Physical Exam Narrative GENERAL: Well-developed well-nourished obese female in no acute distress no respiratory distress SKIN: Warm and dry. HEAD: Normocephalic. EYES: No scleral icterus. No injection or drainage. NECK: Supple, trachea midline. No JVD or lymphadenopathy. CARDIOVASCULAR: Regular rate and rhythm without murmurs, gallops, or rubs. RESPIRATORY: Breath sounds equal bilaterally. No accessory muscle use. GASTROINTESTINAL: Abdomen soft, right upper quadrant epigastric tenderness to palpation with positive clinical Altamirano sign, no guarding or rebound, nondistended. MUSCULOSKELETAL: No cyanosis, or edema. BACK: Nontender without obvious deformity. No CVA tenderness. Data Data Last Documented VS Vital Signs Date Time Temp Pulse Resp B/P Pulse Ox O2 Delivery O2 Flow Rate FiO2 06/12/17 02:57 78 16 124/82 99 06/12/17 01:33 Room Air 06/11/17 23:11 98.3 Orders Complete Blood Count With Diff (06/11/17 23:21) Comprehensive Metabolic Panel (06/11/17 23:21) Lipase (06/11/17 23:21) Urinalysis - C+S If Indicated (06/11/17 23:21) Ct Abd/Pel W Iv Contrast(Rout) (06/11/17 23:21) Iv Access Insert/Monitor (06/11/17 23:21) Ecg Monitoring (06/11/17 23:21) Oximetry (06/11/17 23:21) Ondansetron Inj (Zofran Inj) (06/11/17 23:30) Sodium Chlor 0.9% 1000 Ml Inj (Ns 1000 M (06/11/17 23:21) Sodium Chloride 0.9% Flush (Ns Flush) (06/11/17 23:30) Electrocardiogram (06/11/17 23:21) Chest, Single Ap (06/11/17 23:21) Hydromorphone Pf Inj (Dilaudid Pf Inj) (06/11/17 23:30) Ed Urine Pregnancytest Poc (06/11/17 23:21) Iohexol 350 Inj (Omnipaque 350 Inj) (06/12/17 01:41) Ketorolac Inj (Toradol Inj) (06/12/17 02:30) Mandatory Outpatient Referral (06/12/17 02:28) Labs Laboratory Tests Test 06/11/17 06/12/17 23:40 01:20 White Blood Count 10.9 TH/MM3 Red Blood Count 4.95 MIL/MM3 Hemoglobin 14.3 GM/DL Hematocrit 43.6 % Mean Corpuscular Volume 88.1 FL Mean Corpuscular Hemoglobin 29.0 PG Mean Corpuscular Hemoglobin 32.9 % Concent Red Cell Distribution Width 14.1 % Platelet Count 239 TH/MM3 Mean Platelet Volume 9.7 FL Neutrophils (%) (Auto) 59.7 % Lymphocytes (%) (Auto) 31.2 % Monocytes (%) (Auto) 4.8 % Eosinophils (%) (Auto) 3.5 % Basophils (%) (Auto) 0.8 % Neutrophils # (Auto) 6.5 TH/MM3 Lymphocytes # (Auto) 3.4 TH/MM3 Monocytes # (Auto) 0.5 TH/MM3 Eosinophils # (Auto) 0.4 TH/MM3 Basophils # (Auto) 0.1 TH/MM3 CBC Comment DIFF FINAL Differential Comment Sodium Level 139 MEQ/L Potassium Level 3.5 MEQ/L Chloride Level 107 MEQ/L Carbon Dioxide Level 25.2 MEQ/L Anion Gap 7 MEQ/L Blood Urea Nitrogen 11 MG/DL Creatinine 0.80 MG/DL Estimat Glomerular Filtration 82 ML/MIN Rate Random Glucose 112 MG/DL Calcium Level 7.9 MG/DL Total Bilirubin 0.4 MG/DL Aspartate Amino Transf 13 U/L (AST/SGOT) Alanine Aminotransferase 17 U/L (ALT/SGPT) Alkaline Phosphatase 95 U/L Total Protein 7.0 GM/DL Albumin 3.4 GM/DL Lipase 104 U/L Urine Color YELLOW Urine Turbidity CLEAR Urine pH 6.0 Urine Specific [place] 1.011 Urine Protein NEG mg/dL Urine Glucose (UA) NEG mg/dL Urine Ketones NEG mg/dL Urine Occult Blood TRACE Urine Nitrite NEG Urine Bilirubin NEG Urine Leukocyte Esterase NEG Urine RBC 0-3 /hpf Urine WBC 0-2 /hpf Urine Squamous Epithelial 6-8 /hpf Cells Urine Bacteria OCC /hpf Microscopic Urinalysis Comment CULT NOT INDICATED MDM Medical Decision Making Medical Screen Exam Complete: Yes Emergency Medical Condition: Yes Medical Record Reviewed: Yes Interpretation(s) EKG normal sinus rhythm rate [address] elevation or injury pattern or ectopy noted CBC & BMP Diagram 06/11/17 23:40 ua: Occasional bacteria culture not indicated Differential Diagnosis Biliary colic, cholecystitis, choledocholithiasis, pancreatitis, gastritis, peptic ulcer disease, atypical chest pain, unlikely ACS Narrative Course IV access obtained specimens collected and sent resulting patient managed with Zofran 4 mg IV and Dilaudid 0.5 mg IV CBC is automated differential values in normal range complete metabolic panel LFTs within normal limits urinalysis few bacteria culture not indicated CT abdomen and pelvis reveals no acute intra-abdominal abnormality patient again noted to have gallstone at the gallbladder neck which was noted on prior CT. Patient informed of lab results imaging results resting comfortably voicing no concerns or complaints. This is patient's ER visit for GI complaint with identified cholelithiasis therefore a routine mandatory referral will be made to general surgery. Patient provided Rx for Zofran ODT Diagnosis Primary Impression: Abdominal pain Additional Impression: Gallstones Referrals: General Surgeon call for appointment Primary Care Physician call for appointment Patient Instructions: General Instructions Additional Instructions: Increase fluid hydration Follow clear liquid diet for next 12-24 hours advance diet as tolerated bland/ Jenna diet avoiding any fried or fatty foods Follow-up with primary care provider Follow-up with general surgery regarding history of gallstones Return to the emergency department for pain fever vomiting or any concerns Monitor temperature every 4 hours with thermometer May use acetaminophen/ Tylenol as needed for fever 100.4F or greater May use as tolerated as needed ibuprofen/Advil/Motrin for fever 100.4F or greater avoid use of this medication for pain relief in view of history of gastritis No work times one day Med/Other Pt SpecificInfo: Prescription(s) given Scripts Ondansetron Odt (Zofran Odt)4 Mg Tab4 Mg SL Q6HR PRN (Nausea/Vomiting) #10 TAB Ref 0 Prov:Lorrie Guerrero MD 06/12/17 Disposition: 01 DISCHARGE HOME Condition: Stable Lorrie Guerrero MD Jun 11, 2017 23:21
[2017-06-11] MEDS ORDERED: HYDROmorphone HCL PF 1 MG/ML VIAL IV PUSH ONE (23:30)
[2017-06-11] MEDS ORDERED: ONDANSETRON HCL 4 MG/2 ML VIAL IVP ONE (23:30)
[2017-06-11] MEDS ORDERED: SODIUM CHLORIDE 0.9% FLUSH 10 ML FLUSH IV FLUSH PRN (23:30)
[2017-06-11 23:45] VITALS: RESP 18; O2SAT 97
[2017-06-12 00:03] LABS: AUTOMATED NEUTROPHIL # 6.5 TH/MM3 (1.8-7.7); BASOPHIL # 0.1 TH/MM3 (0-0.2); BASOPHIL % 0.8 % (0.0-2.0); EOSINOPHIL # 0.4 TH/MM3 (0-0.4); EOSINOPHIL % 3.5 % (0.0-4.0); HEMATOCRIT 43.6 % (35.0-46.0); LYMPH % 31.2 % (9.0-44.0); LYMPHOCYTE # 3.4 TH/MM3 (1.0-4.8); MEAN CELL VOLUME 88.1 FL (80.0-100.0); MEAN CORPUSCULAR HGB CONC 32.9 % (32.0-36.0); MONO % 4.8 % (0.0-8.0); NEUT % 59.7 % (16.0-70.0); PLATELET COUNT 239 TH/MM3 (150-450); RED BLOOD COUNT 4.95 MIL/MM3 (4.00-5.30); RED CELL DISTRIBUTION WIDTH 14.1 % (11.6-17.2); WHITE BLOOD COUNT 10.9 TH/MM3 (4.0-11.0)
--- NOTE | 2017-06-12 00:04 | RADRPT ---
EXAM DATE/TIME: 06/11/2017 23:34 [facility] COMPARISON: No previous studies available for comparison. INDICATIONS : Free air. Pain in right upper abdomen and center chest. MEDICAL HISTORY : Gastritis, esophogitis, gallstones. SURGICAL HISTORY : ENCOUNTER: Initial ACUITY: 1 day PAIN SCORE: 8/10 LOCATION: Bilateral chest FINDINGS: A single view of the chest is somewhat limited due to the patient's body habitus. Grossly, lungs are clear. Heart size is normal. Osseous structures are intact. CONCLUSION: Limited exam with no obvious acute cardiopulmonary process. Ludwig Roman MD on June 12, 2017 at 0:02 Board Certified Radiologist. This report was verified electronically.
[2017-06-12 00:12] LABS: HEMO FLAGS DIFF FINAL
[2017-06-12 00:14] LABS: CHLORIDE 107 MEQ/L (98-107); POTASSIUM 3.5 MEQ/L (3.5-5.1); SODIUM (NA) 139 MEQ/L (136-145)
[2017-06-12 00:19] LABS: ANION GAP 7 MEQ/L (5-15); BICARBONATE 25.2 MEQ/L (21.0-32.0); BLOOD UREA NITROGEN 11 MG/DL (7-18)
[2017-06-12 00:22] LABS: ALT (GPT) 17 U/L (10-53); AST (GOT) 13 U/L (15-37); GLOMERULAR FILTRATION RATE 82 ML/MIN (>89)
[2017-06-12 00:23] LABS: TOTAL BILIRUBIN ADULT 0.4 MG/DL (0.2-1.0)
[2017-06-12 00:25] LABS: ALKALINE PHOSPHATASE 95 U/L (45-117)
[2017-06-12 01:33] VITALS: BP 124/82; PULSE 86; RESP 18; O2SAT 96
[2017-06-12 01:35] VITALS: RESP 18
[2017-06-12] MEDS ORDERED: IOHEXOL 350 MG/ML 10 ML VIAL (for RAD DIAG) IV ONE (01:41)
[2017-06-12 01:45] LABS: BLOOD, URINE TRACE (NEG); GLUCOSE,URINE NEG (NEG); KETONE, URINE NEG (NEG); NITRITE,URINE NEG (NEG)
[2017-06-12 01:57] LABS: URINE COLOR YELLOW (YELLW/STRAW)
--- NOTE | 2017-06-12 01:57 | RADRPT ---
EXAM DATE/TIME: 06/12/2017 01:14 [facility] COMPARISON: CT ABDOMEN & PELVIS W CONTRAST, August 26, 2016, 18:18. INDICATIONS : Right upper quadrant and epigastric pain. IV CONTRAST: 95 cc Omnipaque 350 (iohexol) IV ORAL CONTRAST: No oral contrast ingested. RADIATION DOSE: 29.12 CTDIvol (mGy) ; Patient body habitus MEDICAL HISTORY : Cholelithiasis. Renal calculi. SURGICAL HISTORY : Bladder enlargement ENCOUNTER: Initial ACUITY: 1 day PAIN SCALE: 8/10 LOCATION: Right upper quadrant and epigastric TECHNIQUE: Volumetric scanning of the abdomen and pelvis was performed. Using automated exposure control and ad justment of the mA and/or kV according to patient size, radiation dose was kept as low as reasonably achievable to obtain optimal diagnostic quality images. DICOM format image data is available electro nically for review and comparison. FINDINGS: LOWER LUNGS: The visualized lower lungs are clear. LIVER: Homogeneous density without lesion. There is no dilation of the biliary tree. Stable, 3 cm rim calci fied gallstone in the gallbladder neck. SPLEEN: Normal size without lesion. PANCREAS: Within normal limits. KIDNEYS: Normal in size and shape. There is no mass, stone or hydronephrosis. ADRENAL GLANDS: Within normal limits. VASCULAR: There is no aortic aneurysm. BOWEL/MESENTERY: The stomach, small bowel, and colon demonstrate no acute abnormality. There is no free intraperitone al air or fluid. ABDOMINAL WALL: Within normal limits. RETROPERITONEUM: There is no lymphadenopathy. BLADDER: No wall thickening or mass. REPRODUCTIVE: 1.75 cm enhancing nodule posteriorly in the uterine fundus characteristic of a small fibroid. INGUINAL: There is no lymphadenopathy or hernia. MUSCULOSKELETAL: Within normal limits for patient age. CONCLUSION: 1. Stable 3 cm calcified gallstone in the gallbladder neck. 2. Stable 1.75 cm enhancing nodule posteriorly in the uterine fundus characteristic of a small fibroi d. 3. Otherwise, no acute intraperitoneal or pelvic process to explain current clinical symptoms. Ludwig Roman MD on June 12, 2017 at 1:52 Board Certified Radiologist. This report was verified electronically.
[2017-06-12 01:58] LABS: BACTERIA, URINE OCC /hpf; COMMENT (UR) CULT NOT INDICATED; CULTURE IF INDICATED CULT NOT INDICATED; RBC, URINE 0-3 /hpf (0-3); WBC, URINE 0-2 /hpf (0-5)
[2017-06-12] MEDS ORDERED: KETOROLAC TROMETHAMINE 30 MG/ML (IVP) VIAL IV PUSH ONE (02:30)
[2017-06-12 02:57] VITALS: BP 124/82
[2017-06-12] MEDS ORDERED: ZOFR4TAB3 SL (03:03)
--- NOTE | 2017-06-12 15:56 | EKG ---
Date Performed: 06/11/2017 Time Performed: 23:48:59 PTAGE: 36 years EKG: Sinus rhythm NORMAL ECG Since PREVIOUS TRACING , no significant change noted PREVIOUS TRACIN11/08/1996 11.28 DOCTOR: Agusto Dyson Interpretating Date/Time 06/12/2017 15:55:49
== END 2017-06-12 03:02 | disposition home or self-care (01) ==
LOC: PHED 23:04
DX: K80.20 Calculus of gallbladder without cholecystitis without obstruction (principal); F17.210 Nicotine dependence, cigarettes, uncomplicated
CPT/HCPCS: 71010; 74177; 80053; 81001; 83690; 84703; 85025; 93005; 96361; 96374; 96375; 99285; J1170; J1885; J2405; J7030; Q9967

== ENCOUNTER 2017-07-24 02:41 | Inpatient (IN) | payer MEDICAID ==
[~2017-07-24] VITALS: Ht 170.2 cm; Wt 142.9 kg
[2017-07-24 02:43] VITALS: BP 183/116; PULSE 98; RESP 18; TEMP 97.4; O2SAT 98
[2017-07-24] MEDS ORDERED: OMEP20TA PO (02:56)
[2017-07-24 03:28] LABS: BASOPHIL # 0.1 TH/MM3 (0-0.2); BASOPHIL % 0.5 % (0.0-2.0); EOSINOPHIL # 0.4 TH/MM3 (0-0.4); EOSINOPHIL % 3.1 % (0.0-4.0); HEMATOCRIT 40.7 % (35.0-46.0); HEMO FLAGS DIFF FINAL; LYMPH % 32.2 % (9.0-44.0); LYMPHOCYTE # 3.9 TH/MM3 (1.0-4.8); MEAN CELL VOLUME 89.8 FL (80.0-100.0); MEAN CORPUSCULAR HEMOGLOBIN 30.9 PG (27.0-34.0); MEAN CORPUSCULAR HGB CONC 34.3 % (32.0-36.0); MONO % 6.7 % (0.0-8.0); NEUT % 57.5 % (16.0-70.0); PLATELET COUNT 229 TH/MM3 (150-450); RED BLOOD COUNT 4.53 MIL/MM3 (4.00-5.30); RED CELL DISTRIBUTION WIDTH 14.1 % (11.6-17.2); WHITE BLOOD COUNT 12.2 TH/MM3 (4.0-11.0)
[2017-07-24 03:49] LABS: ALT (GPT) 32 U/L (10-53); ANION GAP 5 MEQ/L (5-15); AST (GOT) 12 U/L (15-37); BICARBONATE 28.5 MEQ/L (21.0-32.0); BLOOD UREA NITROGEN 13 MG/DL (7-18); CHLORIDE 104 MEQ/L (98-107); GLOMERULAR FILTRATION RATE 89 ML/MIN (>89); POTASSIUM 3.9 MEQ/L (3.5-5.1); SODIUM (NA) 137 MEQ/L (136-145)
[2017-07-24 03:51] LABS: ALKALINE PHOSPHATASE 93 U/L (45-117); TOTAL BILIRUBIN ADULT 0.3 MG/DL (0.2-1.0)
[2017-07-24] MEDS ORDERED: HYDROmorphone HCL PF 1 MG/ML VIAL IV PUSH ONE ×2 (04:15→05:15)
--- NOTE | 2017-07-24 04:21 | RADRPT ---
EXAM DATE/TIME: 07/24/2017 03:39 [facility] COMPARISON: No previous studies available for comparison. INDICATIONS : Right upper quadrant pain. MEDICAL HISTORY : Gastroesophageal reflux disease. Cholelithiasis. Renal calculi. SURGICAL HISTORY : None. ENCOUNTER: Initial ACUITY: 2 months PAIN SCORE: 3/10 LOCATION: Right upper quadrant MEASUREMENTS: LIVER: 24.8 cm length COMMON DUCT: 7 mm RIGHT KIDNEY: 17.2 x 4.2 x 6.4 cm FINDINGS: Liver is enlarged with fatty infiltration. 2.9 cm gallstone present in the gallbladder neck. Mild gal lbladder wall thickening. Also sludge seen within gallbladder. Right kidney is enlarged to 17 cm in l ength. No biliary ductal dilatation. CONCLUSION: 1. 2.9 cm gallstone in gallbladder neck with mild gallbladder wall thickening. Negative sonographic M urphy's sign. 2. Enlarged, fatty liver. Jeffrey Enamorado MD on July 24, 2017 at 4:15 Board Certified Radiologist. This report was verified electronically.
--- NOTE | 2017-07-24 04:40 | PD ---
HPI Chief Complaint: Abdominal Pain Time Seen by Provider: 02:53 Travel History International Travel<30 days: No Contact w/Intl Traveler<30days: No Traveled to known affect area: No History of Present Illness HPI This is a 36-year-old female who presents to the emergency department with 2 days of right upper quadrant pain, sharp, intermittent at first now constant, moderate severity associated with nausea. She denies any fevers or chills. She 's had this pain before and it's always been her gallbladder. She's been told she needs her gallbladder out but she's been having trouble with her insurance. PFSH Past Medical History Hx Anticoagulant Therapy: No Cancer: No Diabetes: No Diminished Hearing: No Gastrointestinal Disorders: Yes (GALLSTONES) GERD: Yes (GASTRITIS/ESOPHAGITIS) Genitourinary: Yes (PT HAS PROCEDURE TO ENLARGE BLADDER) Headaches: Yes Kidney Stones: Yes Musculoskeletal: Yes (OLD LEFT KNEE INJURY) Psychiatric: No Immunizations Current: Yes Migraines: Yes Tetanus Vaccination: < 5 Years Influenza Vaccination: No ?: Not LMP: 06/30/2017 : 4 Para: 2 Miscarriage: 1 : 1 Past Surgical History Genitourinary Surgery: Yes (BLADDER ENLARGEMENT) Social History Alcohol Use: Yes (Rarely) Tobacco Use: Yes (1 PPD) Substance Use: No Allergies-Medications (Allergen,Severity, Reaction): Coded Allergies: No Known Allergies (Verified , 04/19/17) Reported Meds & Prescriptions Reported Meds & Active Scripts Active Reported Omeprazole 20 Mg Tab 20 Mg PO DAILY Review of Systems Except as stated in HPI: all other systems reviewed are Neg Physical Exam Narrative GENERAL:Well appearing, no acute distress SKIN: Focused skin assessment warm and dry. HEAD: Atraumatic. Normocephalic. EYES: Pupils equal and round. No injection or drainage. ENT: Moist mucous membranes NECK: Trachea midline. CARDIOVASCULAR: Regular rate and rhythm. No murmur appreciated. RESPIRATORY: Clear to auscultation. Breath sounds equal bilaterally. GASTROINTESTINAL: Abdomen soft, tender to palpation in the right upper quadrant with no rebound or guarding. No Altamirano sign. MUSCULOSKELETAL: No obvious deformities. NEUROLOGICAL: Awake and alert. No obvious cranial nerve deficits. Moving all extremities. PSYCHIATRIC: Appropriate mood and affect; insight and judgment normal. Data Data Last Documented VS Vital Signs Date Time Temp Pulse Resp B/P (MAP) Pulse Ox O2 Delivery O2 Flow Rate FiO2 07/24/17 06:08 16 07/24/17 02:43 97.4 98 183/116 (138) 98 Room Air Orders Orders Complete Blood Count With Diff (07/24/17 02:58) Comprehensive Metabolic Panel (07/24/17 02:58) Lipase (07/24/17 02:58) Ed Urine Pregnancytest Poc (07/24/17 02:58) Urinalysis - C+S If Indicated (07/24/17 02:58) Us Abdomen Gallbladder (07/24/17 ) Hydromorphone Pf Inj (Dilaudid Pf Inj) (07/24/17 04:15) Piperacil-Tazo 3.375 Gm Premix (Zosyn 3. (07/24/17 05:15) Hydromorphone Pf Inj (Dilaudid Pf Inj) (07/24/17 05:15) Sodium Chlor 0.9% 1000 Ml Inj (Ns 1000 M (07/24/17 05:15) Labs Laboratory Tests Test 07/24/17 03:00 07/24/17 04:30 White Blood Count 12.2 TH/MM3 Red Blood Count 4.53 MIL/MM3 Hemoglobin 14.0 GM/DL Hematocrit 40.7 % Mean Corpuscular Volume 89.8 FL Mean Corpuscular Hemoglobin 30.9 PG Mean Corpuscular Hemoglobin Concent 34.3 % Red Cell Distribution Width 14.1 % Platelet Count 229 TH/MM3 Mean Platelet Volume 9.5 FL Neutrophils (%) (Auto) 57.5 % Lymphocytes (%) (Auto) 32.2 % Monocytes (%) (Auto) 6.7 % Eosinophils (%) (Auto) 3.1 % Basophils (%) (Auto) 0.5 % Neutrophils # (Auto) 7.0 TH/MM3 Lymphocytes # (Auto) 3.9 TH/MM3 Monocytes # (Auto) 0.8 TH/MM3 Eosinophils # (Auto) 0.4 TH/MM3 Basophils # (Auto) 0.1 TH/MM3 CBC Comment DIFF FINAL Differential Comment Blood Urea Nitrogen 13 MG/DL Creatinine 0.74 MG/DL Random Glucose 97 MG/DL Total Protein 7.1 GM/DL Albumin 3.4 GM/DL Calcium Level 8.7 MG/DL Alkaline Phosphatase 93 U/L Aspartate Amino Transf (AST/SGOT) 12 U/L Alanine Aminotransferase (ALT/SGPT) 32 U/L Total Bilirubin 0.3 MG/DL Sodium Level 137 MEQ/L Potassium Level 3.9 MEQ/L Chloride Level 104 MEQ/L Carbon Dioxide Level 28.5 MEQ/L Anion Gap 5 MEQ/L Estimat Glomerular Filtration Rate 89 ML/MIN Lipase 90 U/L Urine Color COLORLESS Urine Turbidity CLEAR Urine pH 6.0 Urine Specific [place] 1.003 Urine Protein NEG mg/dL Urine Glucose (UA) NEG mg/dL Urine Ketones NEG mg/dL Urine Occult Blood NEG Urine Nitrite NEG Urine Bilirubin NEG Urine Urobilinogen LESS THAN 2.0 MG/DL Urine Leukocyte Esterase NEG Urine RBC LESS THAN 1 /hpf Urine WBC LESS THAN 1 /hpf Urine Squamous Epithelial Cells <1 /hpf Urine Hyaline Casts 1 /lpf Microscopic Urinalysis Comment CULT NOT INDICATED MDM Medical Decision Making Medical Screen Exam Complete: Yes Emergency Medical Condition: Yes Interpretation(s) afebrile, mild leukocytosis biliary labs reassuring Ultrasound: Thickening of the gallbladder wall with a stone at the neck of the gallbladder Differential Diagnosis Cholecystitis, cholelithiasis, gastritis, peptic ulcer disease, pancreatitis Narrative Course This is a 36-year-old female who presents to the emergency department with right upper quadrant abdominal pain that's been going on for 2 days that has been constant all night. She says is the worst it's ever been. She feels nauseous. Labs demonstrate a mild leukocytosis. Ultrasound demonstrates some mild gallbladder wall thickening and a stone in the neck of the gallbladder. I suspect the patient may have early acute cholecystitis. She was given a dose of Zosyn and I spoke to Dr. Reed who will come see the patient in the emergency department. Nadira Silvestre MD Jul 24, 2017 04:40
[2017-07-24 04:45] LABS: BLOOD, URINE NEG (NEG); GLUCOSE,URINE NEG (NEG); HYALINE CAST, URINE 1 /lpf (RARE); KETONE, URINE NEG (NEG); NITRITE,URINE NEG (NEG); SQUAMOUS EPITHELIAL CELL URINE <1 /hpf (0-5); URINE COLOR COLORLESS (YELLW/STRAW)
[2017-07-24 04:53] LABS: COMMENT (UR) CULT NOT INDICATED; CULTURE IF INDICATED CULT NOT INDICATED
[2017-07-24] MEDS ORDERED: SODIUM CHLOR 0.9% 1000 ML INJ 1,000 ML IV SCH (05:15)
[2017-07-24] MEDS ORDERED: PIPERACIL-TAZO 3.375 GM PREMIX 50 ML IV ONE (05:15)
[2017-07-24 07:30] VITALS: BP 116/63; PULSE 84; RESP 21; O2SAT 97
[2017-07-24] MEDS ORDERED: SODIUM CHLORIDE 0.9% FLUSH 10 ML FLUSH IV FLUSH PRN (07:30)
[2017-07-24] MEDS ORDERED: oxyCODONE/ACETAMINOPHEN 5 MG/325 MG TAB PO PRN (07:30)
[2017-07-24] MEDS: SODIUM CHLOR 0.9% 1000 ML INJ 1,000 ML IV SCH ×2 (08:53→15:21)
[2017-07-24] MEDS: PANTOPRAZOLE SODIUM 40 MG VIAL IV PUSH SCH (08:53)
[2017-07-24] MEDS: SODIUM CHLORIDE 0.9% FLUSH 10 ML FLUSH IV FLUSH SCH ×2 (08:54→20:22)
[2017-07-24 10:00] VITALS: BP 160/80; PULSE 83; RESP 18; O2SAT 97
--- NOTE | 2017-07-24 10:35 | MH ---
cc: BRAYDEN VÁZQUEZ MD DATE OF ADMISSION: 07/24/2017 CHIEF COMPLAINT Right upper quadrant abdominal pain, history of cholelithiasis. HISTORY OF PRESENT ILLNESS The patient is a 36-year-old female who presents with a 2-day onset of right upper quadrant abdominal pain. She states the pain is sharp, intermittent, continued to get worse in severity initially 8/10, now a 6/10 with pain medication. She states associated nausea, no vomiting. She has had several episodes in the past year of right upper quadrant abdominal pain with similar symptoms. She has had further workups including gallbladder ultrasound showing confirmed gallstones in the neck of her gallbladder. She has not seen a previous surgeon. She has further workup with diagnosis of gastritis on EGD and is on PPI for this. She further denies fevers or chills or any weight loss. She came to the emergency department, further workup with findings of WBC of 12.2, otherwise, AST, ALT, alkaline phosphatase 93, T-bili 0.3. Lipase was 90. Gallbladder ultrasound showing large 2.9-cm gallstone in the neck of the gallbladder with some gallbladder wall thickening. PAST MEDICAL HISTORY 1. Gastritis. 2. Cholelithiasis and cholecystitis. 3. Esophagitis. 4. Enlarged bladder. PAST SURGICAL HISTORY Bladder enlargement. SOCIAL HISTORY Smokes one and a half packs per day. Occasional ETOH. Denies IVDA. ALLERGIES NO KNOWN DRUG ALLERGIES. MEDICATIONS See EMR. FAMILY HISTORY Positive diabetes, hypertension, coronary artery disease in both mother and father. REVIEW OF SYSTEMS GENERAL: Denies fevers, chills. HEENT: Denies eye pain, ear pain. NECK: Denies swelling or pain. LUNGS: Denies cough or wheeze. HEART: Denies palpitations, chest pain. ABDOMEN: Complains of nausea, denies vomiting. Complained of abdominal pain. : Bladder surgery. ENDOCRINE: Denies polyuria, polydipsia. INTEGUMENT: Denies obvious masses or lesions. NEUROLOGIC: Denies numbness or tingling. PHYSICAL EXAMINATION GENERAL: No acute distress. VITAL SIGNS: Temperature 97.4, pulse 98, respirations 21, blood pressure 116/63, saturation 97% on room air. HEENT: Pupils equal, round, reactive. Moist mucous membranes. NECK: Supple. Trachea midline. LUNGS: Bilateral expansion. Clear. HEART: S1-S2, regular. ABDOMEN: Soft, positive tenderness to palpation right upper quadrant. No rebound or guarding. SKIN: Small abrasions on the abdomen. EXTREMITIES: Warm, well-perfused. No edema. NEUROLOGIC: GCS of 15, 5/5 motor all extremities. Generalized obese. LABORATORY AND DIAGNOSTIC DATA WBC 12.2, hemoglobin 14, hematocrit 40.7, platelets 229. Sodium 137, potassium 3.9, chloride 104, BUN 13, creatinine 0.74, calcium 8.7, bili 0.3, AST 12, ALT 32, lipase 90, albumin 3.4. Ultrasound reviewed by myself showing thickened gallbladder wall with 2.9 cm stone in the neck of the gallbladder, common bile duct 7 mm. ASSESSMENT The patient is a 36-year-old female who presents with obesity, BMI 48 and right upper quadrant pain, history of cholelithiasis, cholecystitis. PLAN After full clinical, radiologic, laboratory workup, the patient with above-named issues including right upper quadrant pain consistent with symptomatic cholelithiasis and concern for cholecystitis. We will admit the patient, give the patient IV pain control, IV fluids, antibiotics. Will plan for a laparoscopic cholecystectomy. Discussed with the patient in detail, states understanding and agrees. MD NOLAN Stanton/VAUGHN /9:46 AM /10:09 AM
[2017-07-24] MEDS: MORPHINE SULFATE 4 MG/ML INJ IV PUSH PRN ×3 (10:36→20:22)
[2017-07-24 11:03] VITALS: BP 138/79; PULSE 85; RESP 20; TEMP 98; O2SAT 97
[2017-07-24 15:25] VITALS: BP 133/80; PULSE 80; RESP 20; TEMP 98.2; O2SAT 98
[2017-07-24 20:10] VITALS: BP 142/95; PULSE 88; RESP 17; TEMP 98.2; O2SAT 95
[2017-07-25] VITALS (7 sets, daily range): BP systolic 115–152; BP diastolic 70–94; PULSE 83–94; RESP 14–18; TEMP 97.6–98.6; O2SAT 93–98
[2017-07-25] MEDS: SODIUM CHLOR 0.9% 1000 ML INJ 1,000 ML IV SCH ×2 (00:49→10:24)
[2017-07-25] MEDS: MORPHINE SULFATE 4 MG/ML INJ IV PUSH PRN ×4 (00:51→23:57)
[2017-07-25] MEDS ORDERED: SODIUM CHLORID 0.9% 500 ML IV PRN (06:15)
[2017-07-25] MEDS ORDERED: POVIDONE IODINE 5% (ANTISEPSIS KIT) 4 APPLICATIONS EACH NARE PRN (06:15)
[2017-07-25] MEDS ORDERED: CHLORHEXIDINE GLUCONATE 2 % 1 PACK (2 CLOTHS) TOPICAL PRN (06:15)
[2017-07-25] MEDS ORDERED: LACTATED RINGER'S 1000 ML IV PRN (06:15)
[2017-07-25] MEDS ORDERED: METOPROLOL TARTRATE 25 MG TAB PO PRN (06:15)
[2017-07-25] MEDS ORDERED: INSULIN HUMAN REGULAR 1,000 UNITS/10 ML VIAL SQ PRN (06:15)
[2017-07-25] MEDS: SODIUM CHLORIDE 0.9% FLUSH 10 ML FLUSH IV FLUSH SCH ×2 (09:00→23:57)
[2017-07-25] MEDS: PANTOPRAZOLE SODIUM 40 MG VIAL IV PUSH SCH (10:25)
[2017-07-25] MEDS ORDERED: LACTATED RINGER'S 1000 ML INJ 1,000 ML IV ONE (12:10)
[2017-07-25] MEDS ORDERED: ONDANSETRON HCL 4 MG/2 ML VIAL IV PUSH ONE (12:10)
[2017-07-25] MEDS ORDERED: LIDOCAINE HCL 1% PF 5 ML AMPULE OTHER ONE (12:10)
[2017-07-25] MEDS ORDERED: GLYCOPYRROLATE 1 MG/5 ML SYRINGE IV PUSH ONE (12:10)
[2017-07-25] MEDS ORDERED: PROPOFOL 200 MG/20 ML AMP IV ONE (12:10)
[2017-07-25] MEDS ORDERED: NEOSTIGMINE 3 MG/3 ML SYR IV ONE (12:10)
[2017-07-25] MEDS ORDERED: ROCURONIUM INJ 50 MG/5 ML SYRINGE IV PUSH ONE (12:10)
[2017-07-25] MEDS ORDERED: MIDAZOLAM HCL 2 MG/2 ML VIAL IV ONE (12:10)
[2017-07-25] MEDS ORDERED: BUPIVACAINE/EPINEPHRINE 0.25% 50 ML VIAL ONE (13:16)
[2017-07-25] MEDS ORDERED: ceFAZolin 2 GM PREMIX 50 ML ONE (13:54)
--- NOTE | 2017-07-25 14:11 | HHI.PR ---
Immediate Post Op Note Procedure Date: Jul 25, 2017 Pre Op Diagnosis: acute cholecystitis with cholelithiasis Post Op Diagnosis: same Surgeon: Prabhakar Reed MD [place] Artist(s): see or sheet Procedure: lap reinier Findings: distended gallbladder stone in neck Complications: none Specimen(s) removed: gallbladder Anesthesia: General Drains: None Patient to: PACU Patient Condition: Good Prabhakar Reed MD Jul 25, 2017 14:11
[2017-07-25] MEDS ORDERED: DO NOT ADM ANY ANTICOAGULANT DRUGS PRN (15:52)
[2017-07-25] MEDS ORDERED: *morphine SULFATE 8 MG/ML PERIprocedure ONLY ONE (16:03)
[2017-07-25] MEDS ORDERED: *RESP: ALBUTEROL 2.5 MG/3 ML NEB (PRN) PERIprocedural Use ONLY NEB ONE (16:06)
[2017-07-25] MEDS: KETOROLAC TROMETHAMINE 30 MG/ML (IVP) VIAL IV PUSH PRN (18:20)
[2017-07-26] VITALS: BP 124/76; PULSE 93; RESP 18; TEMP 98.2; O2SAT 94
[2017-07-26 04:00] VITALS: BP 122/83; PULSE 101; RESP 18; TEMP 97.8; O2SAT 92
[2017-07-26] MEDS: KETOROLAC TROMETHAMINE 30 MG/ML (IVP) VIAL IV PUSH PRN (05:57)
[2017-07-26] MEDS: SODIUM CHLOR 0.9% 1000 ML INJ 1,000 ML IV SCH (05:58)
[2017-07-26 08:00] VITALS: BP 131/83; PULSE 101; RESP 16; TEMP 97.9; O2SAT 93
[2017-07-26] MEDS: PANTOPRAZOLE SODIUM 40 MG VIAL IV PUSH SCH (08:38)
[2017-07-26] MEDS: SODIUM CHLORIDE 0.9% FLUSH 10 ML FLUSH IV FLUSH SCH (08:38)
--- NOTE | 2017-07-26 09:13 | MP ---
cc: BRAYDEN REED MD DATE OF SURGERY: 07/25/2017 PREOPERATIVE DIAGNOSIS Acute cholecystitis with symptomatic cholelithiasis. POSTOPERATIVE DIAGNOSIS Acute cholecystitis with symptomatic cholelithiasis. PROCEDURE PERFORMED Laparoscopic cholecystectomy. SURGEON Dr. Brayden Reed. FRENCH CORD BINDER See OR sheet. ANESTHESIA General endotracheal. IV FLUIDS See anesthesia sheet. ESTIMATED BLOOD LOSS 15 cc. DRAINS None. COMPLICATIONS None. WOUND CLASSIFICATION Clean contaminated. SPECIMEN Gallbladder. FINDINGS Acutely inflamed distended gallbladder, suspect gallbladder hydrops. INDICATION The patient is a 36-year-old female who presented with acute onset of right upper quadrant abdominal pain. The patient has had multiple attacks of symptomatic cholelithiasis and came to emergency department with a subsequent attack and complaints. Further work-up including an ultrasound confirmed this and decision was made for laparoscopic cholecystectomy. DETAILS OF PROCEDURE The patient was taken to the operating suite and placed in a supine position. She was prepped and draped in the usual sterile fashion after induction of general endotracheal anesthesia. A brief timeout was done stating the correct patient, procedure and surgical site and all were in agreement. Attention was directed to the umbilicus where a stab ism incision made and prior local anesthetic injected. A Veress needle was placed and abdominal placement confirmed with a saline drop test. The abdomen was insufflated to 15 mmHg pneumoperitoneum. On cursory inspection there was no evidence of injury. Three other ports were placed, one 12 mm epigastric port followed by two 5 mm right subcostal ports. The patient was placed in reverse Trendelenburg and airplaned to the left. The gallbladder was identified and noted to be extremely edematous and distended. An endo needle was used to aspirate the gallbladder with yellow purulent fluid removed concerning for hydrops. After 160 cc were removed the gallbladder was grasped and retracted cephalad. The patient was also noted to have a pretty significant fatty liver. The cystic duct and cystic artery were dissected out in the usual fashion using [place] and Bovie electrocautery. The cystic artery had two clips placed proximal and one distal and Endo Karolina used to transect this. The cystic duct neck was rather thickened and edematous and therefore decision was made for a dome-down approach. This was done with hook Bovie electrocautery. Once close to the cystic duct the PDS Endoloop was used to ligate the cystic duct. A second PDS was placed just distal to this. Endo Karolina were used to transect the cystic duct. The gallbladder was placed into an EndoCatch bag. There was noted to be several large stones, one of which being approximately 3 cm. The gallbladder was removed through the epigastric port. Suction irrigation was used for the right upper quadrant. Bovie electrocautery was used for hemostasis. The patient was flattened out, pneumoperitoneum was removed. The trocars were removed. The epigastric port was closed with 0 Vicryl on an UR-6. 4-0 Monocryl was used for subcuticular sutures on all port sites. Sterile dressings were placed with Mastisol and Steri-Strips. The patient was extubated and taken to the PACU. MD NOLAN Stanton/HORTENCIA /6:51 PM /8:48 AM
--- NOTE | 2017-07-26 10:08 | HHI.DS ---
Discharge Summary Admission Date Jul 24, 2017 at 07:53 Discharge Date: Jul 26, 2017 Admitting Diagnosis CHOLECYSTITIS Brief History 36 year old female POD1 laparoscopic cholecystectomy. CBC/BMP: 07/24/17 0300 07/24/17 0300 Significant Findings Laboratory Tests Test 07/24/17 03:00 07/24/17 04:30 White Blood Count 12.2 TH/MM3 (4.0-11.0) Aspartate Amino Transf (AST/SGOT) 12 U/L (15-37) PE at Discharge Alert and awake Cardio: RRR Resp: CTAB Abd: lap sites c/d/i; post op tenderness Hospital Course 36 year old female POD1 laparoscopic cholecystectomy. The patient tolerated the procedure well. She was able to tolerate a regular diet. Her pain was controlled using oral pain medications. She will follow up with Dr. Reed in 7 -10 days. Pt Condition on Discharge: Good Discharge Disposition: Discharge Home Kathie Anderson Jul 26, 2017 10:08
[2017-07-26 12:00] VITALS: BP 134/86; PULSE 102; RESP 16; TEMP 98.2; O2SAT 95
== END 2017-07-26 15:36 | disposition home or self-care (01) | DRG 418 ==
LOC: NEPE 02:41 → NEDA 07:53 → N05B 10:22
PROVIDERS: ADMIT Surgery; ATTEND Surgery
PROC: 0FT44ZZ Resection of Gallbladder, Percutaneous Endoscopic Approach (ICD-10-PCS; principal; 2017-07-25 13:51)
DX: K80.00 Calculus of gallbladder with acute cholecystitis without obstruction (principal); K82.1 Hydrops of gallbladder; Z68.42 Body mass index [BMI] 45.0-49.9, adult; F17.210 Nicotine dependence, cigarettes, uncomplicated; E66.9 Obesity, unspecified; K21.9 Gastro-esophageal reflux disease without esophagitis
CPT/HCPCS: 76705; 76937; 80053; 81001; 83690; 84703; 85025; 88304; 94664; 96361; 96365; 96375; 96376; C9113; J0690; J1170; J1885; J2250; J2270; J2405; J2543; J2710; J3010; J7030; J7120; J7613

== ENCOUNTER 2017-09-27 18:08 | Emergency (ER) | payer MEDICAID ==
[~2017-09-27] VITALS: Ht 170.2 cm; Wt 141.8 kg
[~2017-09-27 18:08] MED LIST changes: -CODE30TA2 PO; -HYDR-3533 PO; -OMEP20TA PO; +OMEP20TA93 PO; -POLY17S PO; -ZOFR4TAB3 SL
[2017-09-27 18:19] VITALS: BP 160/94; PULSE 110; RESP 16; TEMP 98.2; O2SAT 95
[2017-09-27] MEDS ORDERED: VENTAER INH (18:58)
[2017-09-27] MEDS ORDERED: AZIT250T3 PO (18:58)
[2017-09-27] MEDS ORDERED: PRED20 PO (18:58)
--- NOTE | 2017-09-27 18:58 | PD ---
HPI Chief Complaint: Cold / Flu Symptoms Time Seen by Provider: 18:53 Travel History International Travel<30 days: No Contact w/Intl Traveler<30days: No Traveled to known affect area: No History of Present Illness HPI 37-year-old female here with productive cough, sinus pain and pressure wheezing 4 days. Patient reports multiple family members in the home with similar symptoms. She is using a home nebulizer with minimal relief. She reports that the fever and chills. Symptoms severity is moderate. No alleviating factors PFSH Past Medical History Hx Anticoagulant Therapy: No Cancer: No Diabetes: No Diminished Hearing: No Gastrointestinal Disorders: Yes (GALLSTONES) GERD: Yes (GASTRITIS/ESOPHAGITIS) Genitourinary: Yes (PT HAS PROCEDURE TO ENLARGE BLADDER) Headaches: Yes Kidney Stones: Yes Musculoskeletal: Yes (OLD LEFT KNEE INJURY) Psychiatric: No Immunizations Current: Yes Migraines: Yes Tetanus Vaccination: < 5 Years Influenza Vaccination: Yes ?: Not LMP: 11--17 : 4 Para: 2 Miscarriage: 1 : 1 Past Surgical History Genitourinary Surgery: Yes (BLADDER ENLARGEMENT) Social History Alcohol Use: Yes (Rarely) Tobacco Use: Yes (1 PPD) Substance Use: No Allergies-Medications (Allergen,Severity, Reaction): Coded Allergies: No Known Allergies (Verified Adverse Reaction, Unknown, 09/27/17) Reported Meds & Prescriptions Reported Meds & Active Scripts Active Reported Omeprazole 20 Mg Tab 20 Mg PO DAILY Review of Systems Except as stated in HPI: all other systems reviewed are Neg General / Constitutional: Positive: Fever, Chills HENT: Positive: Congestion Respiratory: Positive: Cough, Wheezing Physical Exam Narrative GENERAL: Alert well-appearing female in no distress. SKIN: Warm and dry. HEAD: Normocephalic. Tenderness over the frontal maxillary sinuses EYES: No scleral icterus. No injection or drainage. NECK: Supple, trachea midline. No JVD or lymphadenopathy. CARDIOVASCULAR: Regular rate and rhythm without murmurs, gallops, or rubs. RESPIRATORY: Breath sounds equal bilaterally. No accessory muscle use. Harsh sounding cough with rhonchi and expiratory wheeze. GASTROINTESTINAL: Abdomen soft, non-tender, nondistended. Data Data Last Documented VS Vital Signs Date Time Temp Pulse Resp B/P (MAP) Pulse Ox O2 Delivery O2 Flow Rate FiO2 09/27/17 18:19 98.2 110 16 160/94 (310) 95 MDM Medical Decision Making Medical Screen Exam Complete: Yes Emergency Medical Condition: Yes Differential Diagnosis Bronchitis, pneumonia, influenza Narrative Course 37-year-old female here with productive cough and wheezing 4 days. On exam she has a harsh sounding cough with rhonchi and expiratory wheeze. Her vital signs are stable. She is nontoxic appearing. She'll be treated with steroids, bronchodilator and antibiotics. Instructed to follow-up with her primary doctor. Diagnosis Primary Impression: Bronchitis Referrals: Primary Care Physician Additional Instructions: Take [id number] Tylenol or Motrin as needed for pain. Stay well hydrated by drinking fluids frequently. Rest. Follow-up the primary doctor. Scripts Azithromycin (Azithromycin) 250 Mg Tab 250 MG PO DIRECTED for Infection, #6 TAB 0 Refills Take 2 tabs (500 mg) on day 1 then 1 tab daily x 4 days. Prov: Latisha Hardwick 09/27/17 Albuterol 18 GM Inh (Ventolin Hfa 18 GM Inh) 90 Mcg/Act Aer 2 PUFF INH Q4-6H Y for SHORTNESS OF BREATH, #1 INHALER 0 Refills Prov: Latisha Hardwick 09/27/17 Prednisone (Prednisone) 20 Mg Tab 40 MG PO DAILY, #10 TAB 0 Refills Take 40 mg (2 tablets) daily for 5 days Prov: Latisha Hardwick 09/27/17 Disposition: 01 DISCHARGE HOME Condition: Stable Latisha Hardwick Sep 27, 2017 18:58
== END 2017-09-27 19:03 | disposition home or self-care (01) ==
LOC: PHEFT 18:08
DX: J40 Bronchitis, not specified as acute or chronic (principal); F17.200 Nicotine dependence, unspecified, uncomplicated
CPT/HCPCS: 99284

== ENCOUNTER 2017-10-05 10:03 | Emergency (ER) | payer MEDICAID ==
[~2017-10-05] VITALS: Ht 170.2 cm; Wt 143.5 kg
[~2017-10-05 10:03] MED LIST changes: +AZIT250T3 PO; +PRED20 PO; +VENTAER INH
[2017-10-05 10:19] VITALS: BP 183/81; PULSE 119; RESP 16; TEMP 97.9; O2SAT 98
[2017-10-05] MEDS ORDERED: SODIUM CHLOR 0.9% 1000 ML INJ 1,000 ML IV ONE ×2 (10:45→11:30)
[2017-10-05] MEDS ORDERED: ONDANSETRON HCL 4 MG/2 ML VIAL IV PUSH ONE (10:45)
--- NOTE | 2017-10-05 10:55 | PD ---
HPI Chief Complaint: Abdominal Pain Time Seen by Provider: 10:42 Travel History International Travel<30 days: No Contact w/Intl Traveler<30days: No Traveled to known affect area: No History of Present Illness HPI This 37 her old female is complaining of vomiting and diarrhea. She is also having lower abdominal pain. The symptoms all started this morning. She does not recall eating anything unusual. She is recovering from an upper respiratory infection. She was told she had bronchitis and was on the Zithromax until 3 or 4 days ago. PFSH Past Medical History Hx Anticoagulant Therapy: No Cancer: No Diabetes: No Diminished Hearing: No Gastrointestinal Disorders: Yes (GALLSTONES) GERD: Yes (GASTRITIS/ESOPHAGITIS) Genitourinary: Yes (PT HAS PROCEDURE TO ENLARGE BLADDER) Headaches: Yes Kidney Stones: Yes Musculoskeletal: Yes (OLD LEFT KNEE INJURY) Psychiatric: No Immunizations Current: Yes Migraines: Yes ?: Not LMP: 10/05/17 : 4 Para: 2 Miscarriage: 1 : 1 Past Surgical History Cholecystectomy: Yes Genitourinary Surgery: Yes (BLADDER ENLARGEMENT) Social History Alcohol Use: Yes (Rarely) Tobacco Use: Yes (1 PPD) Substance Use: No Allergies-Medications (Allergen,Severity, Reaction): Coded Allergies: No Known Allergies (Verified Adverse Reaction, Unknown, 10/05/17) Reported Meds & Prescriptions Reported Meds & Active Scripts Active Reported Omeprazole 20 Mg Tab 20 Mg PO DAILY Review of Systems General / Constitutional: No: Fever, Chills Eyes: No: Diploplia, Blurred Vision HENT: No: Headaches, Vertigo Cardiovascular: No: Chest Pain or Discomfort, Palpitations Respiratory: No: Cough, Shortness of Breath Gastrointestinal: Positive: Nausea, Vomiting, Diarrhea, Abdominal Pain Genitourinary: No: Frequency, Dysuria Musculoskeletal: No: Myalgias, Arthralgias Skin: No Rash Neurologic: Positive: Weakness Hematologic/Lymphatic: No: Easy Bruising Physical Exam Narrative GENERAL: Well-developed female SKIN: Focused skin assessment warm/dry. HEAD: Atraumatic. Normocephalic. EYES: Pupils equal and round. No scleral icterus. No injection or drainage. ENT: No nasal bleeding or discharge. Mucous membranes pink and moist. NECK: Trachea midline. No JVD. CARDIOVASCULAR: Regular rate and rhythm. No murmur appreciated. RESPIRATORY: No accessory muscle use. Clear to auscultation. Breath sounds equal bilaterally. GASTROINTESTINAL: Abdomen soft, there is some scattered areas of tenderness, nondistended. Hepatic and splenic margins not palpable. MUSCULOSKELETAL: No obvious deformities. No clubbing. No cyanosis. No edema. NEUROLOGICAL: Awake and alert. No obvious cranial nerve deficits. Motor grossly within normal limits. Normal speech. PSYCHIATRIC: Appropriate mood and affect; insight and judgment normal. Data Data Last Documented VS Vital Signs Date Time Temp Pulse Resp B/P (MAP) Pulse Ox O2 Delivery O2 Flow Rate FiO2 10/05/17 12:37 16 10/05/17 11:36 102 136/94 (108) 99 Room Air 10/05/17 10:19 97.9 Orders Orders Complete Blood Count With Diff (10/05/17 10:45) Comprehensive Metabolic Panel (10/05/17 10:45) Sodium Chlor 0.9% 1000 Ml Inj (Ns 1000 M (10/05/17 10:45) Ondansetron Inj (Zofran Inj) (10/05/17 10:45) Morphine Inj (Morphine Inj) (10/05/17 11:00) Sodium Chlor 0.9% 1000 Ml Inj (Ns 1000 M (10/05/17 11:30) Morphine Inj (Morphine Inj) (10/05/17 12:30) Ct Abd/Pel W Iv Contrast(Rout) (10/05/17 ) Urinalysis - C+S If Indicated (10/05/17 12:22) Iohexol 350 Inj (Omnipaque 350 Inj) (10/05/17 12:43) Labs Laboratory Tests Test 10/05/17 10:30 10/05/17 12:00 White Blood Count 12.0 TH/MM3 Red Blood Count 5.46 MIL/MM3 Hemoglobin 15.9 GM/DL Hematocrit 48.1 % Mean Corpuscular Volume 88.1 FL Mean Corpuscular Hemoglobin 29.0 PG Mean Corpuscular Hemoglobin Concent 33.0 % Red Cell Distribution Width 14.3 % Platelet Count 326 TH/MM3 Mean Platelet Volume 8.6 FL Neutrophils (%) (Auto) 77.3 % Lymphocytes (%) (Auto) 14.7 % Monocytes (%) (Auto) 3.3 % Eosinophils (%) (Auto) 3.4 % Basophils (%) (Auto) 1.3 % Neutrophils # (Auto) 9.2 TH/MM3 Lymphocytes # (Auto) 1.8 TH/MM3 Monocytes # (Auto) 0.4 TH/MM3 Eosinophils # (Auto) 0.4 TH/MM3 Basophils # (Auto) 0.2 TH/MM3 CBC Comment DIFF FINAL Differential Comment Blood Urea Nitrogen 12 MG/DL Creatinine 0.73 MG/DL Random Glucose 98 MG/DL Total Protein 7.3 GM/DL Albumin 3.3 GM/DL Calcium Level 8.1 MG/DL Alkaline Phosphatase 99 U/L Aspartate Amino Transf (AST/SGOT) 20 U/L Alanine Aminotransferase (ALT/SGPT) 25 U/L Total Bilirubin 0.8 MG/DL Sodium Level 137 MEQ/L Potassium Level 4.2 MEQ/L Chloride Level 103 MEQ/L Carbon Dioxide Level 25.6 MEQ/L Anion Gap 8 MEQ/L Estimat Glomerular Filtration Rate 90 ML/MIN Urine Collection Type CLEAN CATCH Urine Color YELLOW Urine Turbidity CLEAR Urine pH 6.5 Urine Specific [place] 1.007 Urine Protein NEG mg/dL Urine Glucose (UA) NEG mg/dL Urine Ketones NEG mg/dL Urine Occult Blood TRACE Urine Nitrite NEG Urine Bilirubin NEG Urine Leukocyte Esterase NEG Urine RBC 0-3 /hpf Urine WBC 0-2 /hpf Urine Squamous Epithelial Cells 6-8 /hpf Microscopic Urinalysis Comment CULT NOT INDICATED Urine Collection Time 12:00 [facility] Medical Decision Making Medical Screen Exam Complete: Yes Emergency Medical Condition: Yes Medical Record Reviewed: Yes Differential Diagnosis Differential includes gastroenteritis, nonspecific abdominal pain, appendicitis Narrative Course Initial thought this was gastroenteritis or food poisoning. She's been given IV fluids and Zofran. She's been complaining of crampy abdominal pain. At times in the pelvic at times the parts of the abdomen. Because of the ongoing pain I ordered a CT scan which is negative disease. She is noted to have some hepatomegaly with diffuse steatosis. She is stable for discharge Diagnosis Primary Impression: Acute gastroenteritis Scripts Ondansetron Odt (Zofran Odt) 4 Mg Tab 4 MG SL Q6HR Y for Nausea/Vomiting, #10 TAB 0 Refills Prov: Toby Marie MD 10/05/17 Disposition: 01 DISCHARGE HOME Condition: Stable Toby Marie MD Oct 05, 2017 10:55
[2017-10-05] MEDS ORDERED: MORPHINE SULFATE 4 MG/ML INJ IV PUSH ONE ×2 (11:00→12:30)
[2017-10-05 11:01] LABS: AUTOMATED NEUTROPHIL # 9.2 TH/MM3 (1.8-7.7); BASOPHIL # 0.2 TH/MM3 (0-0.2); BASOPHIL % 1.3 % (0.0-2.0); EOSINOPHIL # 0.4 TH/MM3 (0-0.4); EOSINOPHIL % 3.4 % (0.0-4.0); HEMATOCRIT 48.1 % (35.0-46.0); LYMPH % 14.7 % (9.0-44.0); LYMPHOCYTE # 1.8 TH/MM3 (1.0-4.8); MEAN CELL VOLUME 88.1 FL (80.0-100.0); MONO % 3.3 % (0.0-8.0); NEUT % 77.3 % (16.0-70.0); PLATELET COUNT 326 TH/MM3 (150-450); RED BLOOD COUNT 5.46 MIL/MM3 (4.00-5.30); RED CELL DISTRIBUTION WIDTH 14.3 % (11.6-17.2)
[2017-10-05 11:05] LABS: HEMO FLAGS DIFF FINAL
[2017-10-05 11:10] LABS: CHLORIDE 103 MEQ/L (98-107); POTASSIUM 4.2 MEQ/L (3.5-5.1); SODIUM (NA) 137 MEQ/L (136-145)
[2017-10-05 11:13] LABS: ANION GAP 8 MEQ/L (5-15); BICARBONATE 25.6 MEQ/L (21.0-32.0); BLOOD UREA NITROGEN 12 MG/DL (7-18)
[2017-10-05 11:16] LABS: ALT (GPT) 25 U/L (10-53)
[2017-10-05 11:17] LABS: AST (GOT) 20 U/L (15-37); GLOMERULAR FILTRATION RATE 90 ML/MIN (>89)
[2017-10-05 11:18] LABS: TOTAL BILIRUBIN ADULT 0.8 MG/DL (0.2-1.0)
[2017-10-05 11:19] LABS: ALKALINE PHOSPHATASE 99 U/L (45-117)
[2017-10-05 11:36] VITALS: BP 136/94; PULSE 102; RESP 16; O2SAT 99
[2017-10-05 12:36] VITALS: BP 131/92; PULSE 99; RESP 16; O2SAT 98
[2017-10-05 12:37] VITALS: RESP 16
[2017-10-05 12:42] LABS: GLUCOSE,URINE NEG (NEG); KETONE, URINE NEG (NEG); NITRITE,URINE NEG (NEG); PH, URINE 6.5 (5.0-8.5)
[2017-10-05] MEDS ORDERED: IOHEXOL 350 MG/ML 10 ML VIAL (for RAD DIAG) IVCONTRAST ONE (12:43)
[2017-10-05 12:50] LABS: BLOOD, URINE TRACE (NEG)
[2017-10-05 12:51] LABS: COMMENT (UR) CULT NOT INDICATED; CULTURE IF INDICATED CULT NOT INDICATED; METHOD OF COLLECTION CLEAN CATCH; RBC, URINE 0-3 /hpf (0-3); URINE COLOR YELLOW (YELLW/STRAW); WBC, URINE 0-2 /hpf (0-5)
--- NOTE | 2017-10-05 13:20 | RADRPT ---
EXAM DATE/TIME: 10/05/2017 12:35 [facility] COMPARISON: CT ABDOMEN & PELVIS W CONTRAST, June 12, 2017, 1:14. INDICATIONS : Lower abdominal pain, nausea, vomiting and diarrhea. IV CONTRAST: 85 cc Omnipaque 350 (iohexol) IV ORAL CONTRAST: No oral contrast ingested. RADIATION DOSE: 22.35 CTDIvol (mGy) MEDICAL HISTORY : Gastroesophageal reflux disease. Renal calculi. SURGICAL HISTORY : Tubal ligation. Cholecystectomy. ENCOUNTER: Initial ACUITY: 1 day PAIN SCALE: 7/10 LOCATION: Bilateral lower quadrant TECHNIQUE: Volumetric scanning of the abdomen and pelvis was performed. Using automated exposure control and ad justment of the mA and/or kV according to patient size, radiation dose was kept as low as reasonably achievable to obtain optimal diagnostic quality images. DICOM format image data is available electro nically for review and comparison. FINDINGS: LOWER LUNGS: The visualized lower lungs are clear. LIVER: The liver is enlarged and demonstrates diffuse hypodensity. Portal vein is patent. There are no focal space-occupying lesions. Post cholecystectomy clips are noted. SPLEEN: Normal size without lesion. PANCREAS: Within normal limits. KIDNEYS: Normal in size and shape. There is no mass, stone or hydronephrosis. ADRENAL GLANDS: Within normal limits. VASCULAR: There is no aortic aneurysm. BOWEL/MESENTERY: The stomach, small bowel, and colon demonstrate no acute abnormality. There is no free intraperitone al air or fluid. ABDOMINAL WALL: Within normal limits. RETROPERITONEUM: There is no lymphadenopathy. BLADDER: No wall thickening or mass. REPRODUCTIVE: Within normal limits. INGUINAL: There is no lymphadenopathy or hernia. MUSCULOSKELETAL: Within normal limits for patient age. CONCLUSION: 1. Hepatomegaly with diffuse steatosis. 2. Status post cholecystectomy. 3. No acute process. Gopal Mott MD on October 05, 2017 at 13:15 Board Certified Radiologist. This report was verified electronically.
[2017-10-05] MEDS ORDERED: ZOFR4TAB3 SL (13:30)
[2017-10-05 13:44] VITALS: BP 145/88
== END 2017-10-05 13:47 | disposition home or self-care (01) ==
LOC: PHED 10:03
DX: K52.9 Noninfective gastroenteritis and colitis, unspecified (principal); K21.9 Gastro-esophageal reflux disease without esophagitis; F17.200 Nicotine dependence, unspecified, uncomplicated
CPT/HCPCS: 74177; 80053; 81001; 85025; 96361; 96374; 96375; 96376; 99285; J2270; J2405; J7030; Q9967

== ENCOUNTER 2018-01-03 22:14 | Emergency (ER) | payer MEDICAID ==
[~2018-01-03] VITALS: Ht 170.2 cm; Wt 148.1 kg
[~2018-01-03 22:14] MED LIST changes: -AZIT250T3 PO; -PRED20 PO; -VENTAER INH; +ZOFR4TAB3 SL
[2018-01-03 22:18] VITALS: BP 179/95; PULSE 110; RESP 20; TEMP 98; O2SAT 97
[2018-01-03 23:10] VITALS: RESP 18; O2SAT 96
[2018-01-03 23:15] VITALS: BP 168/104; PULSE 108; RESP 18; O2SAT 96
[2018-01-03] MEDS ORDERED: SODIUM CHLORIDE 0.9% FLUSH 10 ML FLUSH IV FLUSH PRN (23:15)
[2018-01-03 23:38] LABS: AUTOMATED NEUTROPHIL # 8.4 TH/MM3 (1.8-7.7); BASOPHIL # 0.1 TH/MM3 (0-0.2); BASOPHIL % 0.5 % (0.0-2.0); EOSINOPHIL # 0.4 TH/MM3 (0-0.4); EOSINOPHIL % 3.1 % (0.0-4.0); HEMOGLOBIN 15.5 GM/DL (11.6-15.3); LYMPH % 29.3 % (9.0-44.0); MEAN CELL VOLUME 87.8 FL (80.0-100.0); MEAN CORPUSCULAR HEMOGLOBIN 30.2 PG (27.0-34.0); MEAN CORPUSCULAR HGB CONC 34.4 % (32.0-36.0); MEAN PLATELET VOLUME 8.6 FL (7.0-11.0); MONOCYTE # 0.8 TH/MM3 (0-0.9); NEUT % 61.1 % (16.0-70.0); PLATELET COUNT 317 TH/MM3 (150-450); RED BLOOD COUNT 5.12 MIL/MM3 (4.00-5.30); RED CELL DISTRIBUTION WIDTH 14.6 % (11.6-17.2); WHITE BLOOD COUNT 13.7 TH/MM3 (4.0-11.0)
--- NOTE | 2018-01-03 23:50 | PD ---
HPI Chief Complaint: GI Complaint Time Seen by Provider: 23:45 Travel History International Travel<30 days: No Contact w/Intl Traveler<30days: No Traveled to known affect area: No History of Present Illness HPI 37-year-old female presents to the emergency department for 3 days of low back pain with cough and congestion. Patient reports nasal drainage is yellowish in discoloration and phlegm production is brown in discoloration. Patient denies fever chills. Patient denies chest pain or shortness of breath. Patient denies injury or fall. Low back pain is worsened by ambulation. No report of lower extremity numbness tingling or weakness saddle anesthesia or bladder or bowel dysfunction. Patient has been taking ibuprofen and acetaminophen for discomfort daily. Patient rates pain as moderate to severe. Patient does smoke cigarettes. Last menses was 12/05/17. Patient denies any injury or fall. PFSH Past Medical History Narrative Medical Morbid obesity migraine gastritis cholecystectomy tobaccoism nursing notes reviewed Hx Anticoagulant Therapy: No Cancer: No Diabetes: No Diminished Hearing: No Gastrointestinal Disorders: Yes (GALLSTONES) GERD: Yes (GASTRITIS/ESOPHAGITIS) Genitourinary: Yes (PT HAS PROCEDURE TO ENLARGE BLADDER) Headaches: Yes Kidney Stones: Yes Musculoskeletal: Yes (OLD LEFT KNEE INJURY) Psychiatric: No Immunizations Current: Yes Migraines: Yes Influenza Vaccination: No ?: Not LMP: 12/05/17 : 4 Para: 2 Miscarriage: 1 : 1 Past Surgical History Cholecystectomy: Yes Genitourinary Surgery: Yes (BLADDER ENLARGEMENT) Other Surgery: No Social History Alcohol Use: Yes (Rarely) Tobacco Use: Yes (1 PPD) Substance Use: No Allergies-Medications (Allergen,Severity, Reaction): Coded Allergies: No Known Allergies (Verified Adverse Reaction, Unknown, 10/05/17) Reported Meds & Prescriptions Reported Meds & Active Scripts Active Reported Omeprazole 20 Mg Tab 20 Mg PO DAILY Review of Systems Except as stated in HPI: all other systems reviewed are Neg General / Constitutional: No: Fever, Chills HENT: Positive: Congestion, No: Sore Throat Cardiovascular: No: Chest Pain or Discomfort Respiratory: Positive: Cough, Shortness of Breath Gastrointestinal: Positive: Nausea, No: Vomiting, Abdominal Pain Genitourinary: No: Dysuria, Flank Pain Musculoskeletal: Positive: Myalgias, Arthralgias, Pain (low back pain) Skin: No Rash Neurologic: No: Weakness Psychiatric: No: Anxiety Hematologic/Lymphatic: No: Lymph Node Enlargement Physical Exam Narrative GENERAL: Well-developed well-nourished morbidly obese female in no acute distress no respiratory distress SKIN: Warm and dry. HEAD: Normocephalic. EYES: No scleral icterus. No injection or drainage. NECK: Supple, trachea midline. No JVD or lymphadenopathy. CARDIOVASCULAR: Regular rate and rhythm without murmurs, gallops, or rubs. RESPIRATORY: Breath sounds equal bilaterally. No accessory muscle use. GASTROINTESTINAL: Abdomen soft, non-tender, nondistended. MUSCULOSKELETAL: No cyanosis, or edema. BACK: Nontender without obvious deformity. No CVA tenderness. Data Data Last Documented VS Vital Signs Date Time Temp Pulse Resp B/P (MAP) Pulse Ox O2 Delivery O2 Flow Rate FiO2 01/03/18 23:25 18 01/03/18 23:15 108 168/104 (125) 96 Room Air 01/03/18 22:18 98.0 Orders Orders Beta Hcg (Quant/Titer) (01/03/18 23:03) Complete Blood Count With Diff (01/03/18 23:03) Comprehensive Metabolic Panel (01/03/18 23:03) Lipase (01/03/18 23:03) Urinalysis - C+S If Indicated (01/03/18 23:03) Iv Access Insert/Monitor (01/03/18 23:03) Ecg Monitoring (01/03/18 23:03) Oximetry (01/03/18 23:03) Sodium Chloride 0.9% Flush (Ns Flush) (01/03/18 23:15) Chest, Single Ap (01/03/18 ) Ed Urine Pregnancytest Poc (01/03/18 23:45) Urine Culture (01/03/18 23:05) Ketorolac Inj (Toradol Inj) (01/04/18 01:15) Ceftriaxone Inj (Rocephin Inj) (01/04/18 01:15) Ondansetron Inj (Zofran Inj) (01/04/18 01:30) Labs Laboratory Tests Test 01/03/18 23:05 01/03/18 23:15 Urine Collection Type CLEAN CATCH Urine Color YELLOW Urine Turbidity SL CLOUDY Urine pH 5.5 Urine Specific [place] 1.025 Urine Protein NEG mg/dL Urine Glucose (UA) NEG mg/dL Urine Ketones NEG mg/dL Urine Occult Blood SMALL Urine Nitrite NEG Urine Bilirubin NEG Urine Urobilinogen 0.2 MG/DL Urine Leukocyte Esterase NEG Urine RBC 0-3 /hpf Urine WBC 0-2 /hpf Urine Squamous Epithelial Cells 6-8 /hpf Urine Amorphous Sediment SMALL Urine Bacteria MOD /hpf Urine Mucus MOD /lpf Microscopic Urinalysis Comment CULTURE INDICATED White Blood Count 13.7 TH/MM3 Red Blood Count 5.12 MIL/MM3 Hemoglobin 15.5 GM/DL Hematocrit 45.0 % Mean Corpuscular Volume 87.8 FL Mean Corpuscular Hemoglobin 30.2 PG Mean Corpuscular Hemoglobin Concent 34.4 % Red Cell Distribution Width 14.6 % Platelet Count 317 TH/MM3 Mean Platelet Volume 8.6 FL Neutrophils (%) (Auto) 61.1 % Lymphocytes (%) (Auto) 29.3 % Monocytes (%) (Auto) 6.0 % Eosinophils (%) (Auto) 3.1 % Basophils (%) (Auto) 0.5 % Neutrophils # (Auto) 8.4 TH/MM3 Lymphocytes # (Auto) 4.0 TH/MM3 Monocytes # (Auto) 0.8 TH/MM3 Eosinophils # (Auto) 0.4 TH/MM3 Basophils # (Auto) 0.1 TH/MM3 CBC Comment DIFF FINAL Differential Comment Blood Urea Nitrogen 9 MG/DL Creatinine 0.78 MG/DL Random Glucose 94 MG/DL Total Protein 7.9 GM/DL Albumin 3.6 GM/DL Calcium Level 8.9 MG/DL Alkaline Phosphatase 101 U/L Aspartate Amino Transf (AST/SGOT) 14 U/L Alanine Aminotransferase (ALT/SGPT) 16 U/L Total Bilirubin 0.3 MG/DL Sodium Level 139 MEQ/L Potassium Level 3.8 MEQ/L Chloride Level 105 MEQ/L Carbon Dioxide Level 26.8 MEQ/L Anion Gap 7 MEQ/L Estimat Glomerular Filtration Rate 84 ML/MIN Lipase 90 U/L Human Chorionic Gonadotropin, Quant LESS THAN 1 MIU/ML MDM Medical Decision Making Medical Screen Exam Complete: Yes Emergency Medical Condition: Yes Medical Record Reviewed: Yes Interpretation(s) UA: moderate bacteria Last Impressions Chest X-Ray 01/03/18 0000 Signed Impressions: Service Date/Time: Thursday, January 04, 2018 00:38 - CONCLUSION: Normal examination. Marvel Scruggs Jr., MD CBC & BMP Diagram 01/03/18 23:15 Total Protein 7.9, Albumin 3.6, Calcium Level 8.9, Alkaline Phosphatase 101, Aspartate Amino Transf (AST/SGOT) 14 L, Alanine Aminotransferase (ALT/SGPT) 16, Total Bilirubin 0.3 Vital Signs Date Time Temp Pulse Resp B/P (MAP) Pulse Ox O2 Delivery O2 Flow Rate FiO2 01/03/18 23:25 18 01/03/18 23:15 108 18 168/104 (125) 96 Room Air 01/03/18 23:10 18 96 Room Air 01/03/18 22:18 98.0 110 20 179/95 (123) 97 quant hcg: negative Differential Diagnosis Cough, viral syndrome, bronchitis, pneumonia, UTI, pyelonephritis, uncontrolled hypertension, pancreatitis, choledocholithiasis Narrative Course Specimens collected and sent for resulting Patient administered Toradol 30 mg IV after negative quantitative hCG Zofran for complaint of nausea Urinalysis abnormal with moderate bacteria given first dose of antibiotic Rocephin 1 g Patient stable for outpatient management and encouraged to follow-up with primary care provider she will be provided outpatient antibiotic prescription along with Zofran as needed for nausea and weight-based ibuprofen for pain associated with inflammation Diagnosis Primary Impression: UTI (urinary tract infection) Additional Impression: Cough Referrals: Primary Care Physician call for appointment Patient Instructions: General Instructions Additional Instructions: Follow-up with primary care provider Complete course of antibiotic as prescribed Return to the emergency department for any concerns or change in condition Increase fluid hydration May take acetaminophen/Tylenol every 4 hours as needed for minor pain or fever 100.4F or greater May take ibuprofen 800 mg as often as every 8 hours as needed for pain associated with inflammation for fever 100.4F or greater Med/Other Pt SpecificInfo: Prescription(s) given Scripts Ibuprofen (Ibuprofen) 800 Mg Tab 800 MG PO Q8H Y for PAIN GREATER THAN 5, #10 TAB 0 Refills Prov: Lorrie Guerrero MD 01/04/18 Ondansetron Odt (Zofran Odt) 4 Mg Tab 4 MG SL Q6HR Y for Nausea/Vomiting, #10 TAB 0 Refills Prov: Lorrie Guerrero MD 01/04/18 Sulfamethoxazole-Trimethoprim (Bactrim DS) 800-160 Mg Tab 1 TAB PO BID for Infection, #20 TAB 0 Refills Prov: Lorrie Guerrero MD 01/04/18 Disposition: 01 DISCHARGE HOME Condition: Stable Lorrie Guerrero MD Jan 03, 2018 23:50
[2018-01-04 00:15] VITALS: BP 145/85; PULSE 102; RESP 18; O2SAT 95
[2018-01-04 00:16] LABS: CHLORIDE 105 MEQ/L (98-107); SODIUM (NA) 139 MEQ/L (136-145)
[2018-01-04 00:20] LABS: ALBUMIN 3.6 GM/DL (3.4-5.0); BICARBONATE 26.8 MEQ/L (21.0-32.0); CALCIUM 8.9 MG/DL (8.5-10.1)
[2018-01-04 00:21] LABS: BLOOD UREA NITROGEN 9 MG/DL (7-18); GLUCOSE,RANDOM 94 MG/DL (74-106)
[2018-01-04 00:22] LABS: BILIRUBIN, URINE NEG (NEG); BLOOD, URINE SMALL (NEG); GLUCOSE,URINE NEG (NEG); KETONE, URINE NEG (NEG); NITRITE,URINE NEG (NEG); PH, URINE 5.5 (5.0-8.5); URINE COLOR YELLOW (YELLW/STRAW); URINE LEUKOCYTE ESTERASE NEG (NEG)
[2018-01-04 00:23] LABS: ALT (GPT) 16 U/L (10-53); AST (GOT) 14 U/L (15-37); CREATININE 0.78 MG/DL (0.50-1.00); GLOMERULAR FILTRATION RATE 84 ML/MIN (>89)
[2018-01-04 00:25] LABS: TOTAL BILIRUBIN ADULT 0.3 MG/DL (0.2-1.0); TOTAL PROTEIN 7.9 GM/DL (6.4-8.2)
[2018-01-04 00:26] LABS: ALKALINE PHOSPHATASE 101 U/L (45-117)
[2018-01-04 00:29] LABS: BACTERIA, URINE MOD /hpf; MUCUS URINE MOD /lpf (OCC)
[2018-01-04 00:30] LABS: AMORPHOUS SEDIMENT, URINE SMALL; RBC, URINE 0-3 /hpf (0-3); WBC, URINE 0-2 /hpf (0-5)
--- NOTE | 2018-01-04 00:59 | RADRPT ---
EXAM DATE/TIME: 01/04/2018 00:38 [facility] COMPARISON: CHEST SINGLE AP, June 11, 2017, 23:34. INDICATIONS : Cough. MEDICAL HISTORY : Gastritis, esophogitis, gallstones. SURGICAL HISTORY : None. ENCOUNTER: Initial ACUITY: 1 day PAIN SCORE: 0/10 LOCATION: Bilateral chest FINDINGS: A single view of the chest demonstrates the lungs to be symmetrically aerated without evidence of mas s, infiltrate or effusion. The cardiomediastinal contours are unremarkable. Osseous structures are intact. CONCLUSION: Normal examination. Marvel Scruggs Jr., MD on January 04, 2018 at 0:57 Board Certified Radiologist. This report was verified electronically.
[2018-01-04 01:15] VITALS: BP 166/88; PULSE 102; RESP 16; O2SAT 93
[2018-01-04] MEDS ORDERED: cefTRIAXone INJ 1,000 MG in SODIUM CHLORIDE 0.9% INJ 100 ML IV ONE (01:15)
[2018-01-04] MEDS ORDERED: KETOROLAC TROMETHAMINE 30 MG/ML (IVP) VIAL IV PUSH ONE (01:15)
[2018-01-04] MEDS ORDERED: IBUP1TAB7 PO (01:18)
[2018-01-04] MEDS ORDERED: ZOFR4TAB3 SL (01:18)
[2018-01-04] MEDS ORDERED: BACT800T5 PO (01:18)
[2018-01-04] MEDS ORDERED: ONDANSETRON HCL 4 MG/2 ML VIAL IV PUSH ONE (01:30)
[2018-01-04 01:45] VITALS: BP 151/105; PULSE 94; RESP 16; O2SAT 96
== END 2018-01-04 02:59 | disposition home or self-care (01) ==
LOC: PHED 22:14
DX: N39.0 Urinary tract infection, site not specified (principal); R05 Cough; B96.89 Other specified bacterial agents as the cause of diseases classified elsewhere; F17.210 Nicotine dependence, cigarettes, uncomplicated
CPT/HCPCS: 71045; 80053; 81001; 83690; 84702; 84703; 85025; 87086; 96365; 96375; 99284; J0696; J1885; J2405

== ENCOUNTER 2018-03-25 01:46 | Emergency (ER) | payer MEDICAID ==
[~2018-03-25] VITALS: Ht 170.2 cm; Wt 155.6 kg
[~2018-03-25 01:46] MED LIST changes: +BACT800T5 PO; +IBUP1TAB7 PO
[2018-03-25 01:48] VITALS: BP 176/106; PULSE 110; RESP 18; TEMP 97.6; O2SAT 97
--- NOTE | 2018-03-25 02:06 | PD ---
HPI Chief Complaint: Pain: Acute or Chronic Time Seen by Provider: 02:00 Travel History International Travel<30 days: No Contact w/Intl Traveler<30days: No Traveled to known affect area: No History of Present Illness HPI Patient presents to the emergency department complaining of left knee pain 1 week. States that she injured her knee 14 years ago and reports pressure in the kneecap. She has been taking 800 mg of ibuprofen twice a day today, 3 times yesterday without much help. Denies any recent injury or trauma. She denies fever, chills, nausea, vomiting, recent travel, chest pain, shortness of breath. She states that she would go to the orthopedic doctor and get steroid injections in her knee and that improved her pain for a small amount of time. Told that she had a meniscus injury at that time secondary to hyperextending her knee. Currently does not have insurance and cannot follow-up with orthopedic doctor. PFSH Past Medical History Hx Anticoagulant Therapy: No Cancer: No Diabetes: No Diminished Hearing: No Gastrointestinal Disorders: Yes (GALLSTONES) GERD: Yes (GASTRITIS/ESOPHAGITIS) Genitourinary: Yes (PT HAS PROCEDURE TO ENLARGE BLADDER) Headaches: Yes Kidney Stones: Yes Musculoskeletal: Yes (OLD LEFT KNEE INJURY) Psychiatric: No Immunizations Current: Yes Migraines: Yes ?: Not LMP: 5-11-18 : 4 Para: 2 Miscarriage: 1 : 1 Past Surgical History Cholecystectomy: Yes Genitourinary Surgery: Yes (BLADDER ENLARGEMENT) Other Surgery: No Social History Alcohol Use: Yes (Rarely) Tobacco Use: Yes (1 PPD) Substance Use: No Allergies-Medications (Allergen,Severity, Reaction): Coded Allergies: No Known Allergies (Verified Adverse Reaction, Unknown, 03/25/18) Reported Meds & Prescriptions Reported Meds & Active Scripts Active Prednisone 20 Mg Tab 40 Mg PO DAILY 5 Days Tramadol (Tramadol HCl) 50 Mg Tab 50 Mg PO Q6H PRN 5 Days Ibuprofen 800 Mg Tab 800 Mg PO Q8H PRN Reported Omeprazole 20 Mg Tab 20 Mg PO DAILY Review of Systems Except as stated in HPI: all other systems reviewed are Neg Physical Exam Narrative GENERAL: Positive disc SKIN: Focused skin assessment warm/dry. HEAD: Atraumatic. Normocephalic. EYES: Pupils equal and round. No scleral icterus. No injection or drainage. ENT: No nasal bleeding or discharge. Mucous membranes pink and moist. NECK: Trachea midline. No JVD. CARDIOVASCULAR: Regular rate and rhythm. No murmur appreciated. RESPIRATORY: No accessory muscle use. Clear to auscultation. Breath sounds equal bilaterally. GASTROINTESTINAL: Abdomen soft, non-tender, obese. MUSCULOSKELETAL: Mild swelling left knee. No clubbing. No cyanosis. Tender to palpation on the anterior and lateral aspect of the knee. Full range of motion of left knee. No calf pain or tenderness. Patient ambulating in the emergency department. NEUROLOGICAL: Awake and alert. No obvious cranial nerve deficits. Motor grossly within normal limits. Normal speech. PSYCHIATRIC: Appropriate mood and affect; insight and judgment normal. Data Data Last Documented VS Vital Signs Date Time Temp Pulse Resp B/P (MAP) Pulse Ox O2 Delivery O2 Flow Rate FiO2 03/25/18 02:15 107 20 145/86 (105) 96 Room Air 03/25/18 01:48 97.6 Orders Orders Knee, Complete (4vws) (03/25/18 02:00) Acetamin-Hydrocod 325-5 Mg ([place] 5-325 (03/25/18 02:15) MDM Medical Decision Making Medical Screen Exam Complete: Yes Emergency Medical Condition: Yes Interpretation(s) Xray: FINDINGS: Bony structures are intact and in normal alignment. Joints are intact without dislocation or significant arthropathy. Osseous density is normal. Soft tissues are unremarkable. There are linear densities seen in the medial superficial soft tissues likely related to dilated veins. No radiopaque foreign bodies seen. CONCLUSION: Negative left knee series. Differential Diagnosis osteoarthritis, knee fracture/dislocation, meniscus injury Narrative Course Patient presents to the emergency department complaining of left knee pain. Will check x-ray and give 1 [place] 5/325mg po. Diagnosis Primary Impression: Knee pain, left Qualified Codes: M25.562 - Pain in left knee; G89.29 - Other chronic pain Referrals: [facility] Patient Instructions: General Instructions, Knee Pain (ED) Additional Instructions: 1. Continue taking the Motrin as needed for pain with the tramadol for breakthrough pain. 2. Return to the emergency department immediately for fever , chest pain, shortness of breath, swelling in affected extremity, increased pain color changes in affected extremity, or for any new/worrisome/worsening symptoms. 3. Follow-up with [facility] in 24-48 hours. Med/Other Pt SpecificInfo: Prescription(s) given Scripts Prednisone (Prednisone) 20 Mg Tab 40 MG PO DAILY for 5 Days, #10 TAB 0 Refills Prov: Cristina Shipman MD 03/25/18 Tramadol (Tramadol) 50 Mg Tab 50 MG PO Q6H Y for PAIN for 5 Days, #20 TAB 0 Refills Prov: Cristina Shipman MD 03/25/18 Disposition: 01 DISCHARGE HOME Condition: Stable Cristina Shipman MD Mar 25, 2018 02:06
[2018-03-25 02:15] VITALS: BP 145/86; PULSE 107; RESP 20; O2SAT 96
[2018-03-25] MEDS ORDERED: ACETAMINOPHEN/HYDROcodone 325 MG/5 MG TAB PO ONE (02:15)
--- NOTE | 2018-03-25 02:46 | RADRPT ---
EXAM DATE: 03/25/2018 2:14 AM EDT AGE/SEX: 37 years / Female INDICATIONS: Entire left knee pain. CLINICAL DATA: This is the patient's initial encounter. Patient reports that signs and symptoms have been present for 1 week and indicates a pain score of 9/10. MEDICAL/SURGICAL HISTORY: . Gastroesophageal reflux disease. Renal calculi . Tubal ligation. C holecystectomy COMPARISON: [facility], KNEE LEFT COMPLETE (4VWS), 10/13/2016. . FINDINGS: Bony structures are intact and in normal alignment. Joints are intact without dislocation or signifi cant arthropathy. Osseous density is normal. Soft tissues are unremarkable. There are linear densit ies seen in the medial superficial soft tissues likely related to dilated veins. No radiopaque foreig n bodies seen. CONCLUSION: Negative left knee series. Electronically signed by: Herson White MD 03/25/2018 2:44 AM EDT
[2018-03-25] MEDS ORDERED: TRAM50TA PO (03:31)
[2018-03-25] MEDS ORDERED: PRED20 PO (03:36)
[2018-03-25 03:39] VITALS: BP 134/85
== END 2018-03-25 04:05 | disposition home or self-care (01) ==
LOC: PHED 01:46
DX: M25.562 Pain in left knee (principal); K21.9 Gastro-esophageal reflux disease without esophagitis; F17.200 Nicotine dependence, unspecified, uncomplicated
CPT/HCPCS: 73564; 99283